=== PATIENT | female | born 1970 | race Caucasian/White ===

== ENCOUNTER 2016-02-13 09:43 | Outpatient (RCR) | payer MEDICARE, OTHER ==
--- OUTSIDE RECORDS SUMMARY | 2015-11-21 10:14 | XMS REPORT | Continuity of Care Document ---
Author Author [facility] Organization [facility] Address Unknown Phone Unavailable Care Team Providers Care Monotype Caster Name Role Phone Barbra Haney PCP [phone] Source Comments Some departments are not documenting in the electronic medical record. If you do not see the information that you expected, contact Release of Information in the Health Information Management department at [phone] for further assistance in locating additional records.[facility] Active Allergies and Adverse Reactions No Known [...] # [id number]. Sponsor: Simi. PI: Dr. Rutherford Photo Technologist: Pedrito Serra [id number] is an oral, potent, [...] site of breast (HCC) (Primary Dx) 08/23/2015 [facility] Cardiology Yovany Rutherford MD Encounter 08/23/2015 Hospital Radiology Yovany Rutherford MD Encounter 08/23/2015 [facility] Radiology Yovany Rutherford MD Encounter 08/23/2015 Screening Form Social History Tobacco Use Types Packs/Day Years [...] 11/29/2015 Appointment Radiology Yovany Rutherford MD [address] [place] [address] [phone] (Fax) 11/29/2015 Appointment Oncology Yovany Rutherford MD [address] [place] [address] [phone] (Fax) Health Maintenance Due Date Last Done [...] pelvis dated May 24, 2015 FINDINGS: ARTURO NVOAK M.D. has personally reviewed these images and [...]
[2015-12-05 17:59] LABS: BASOPHILS % (AUTO) 1 % (0-10); EOSINOPHILS # (AUTO) 0.1 10^3/uL (0.0-0.3); EOSINOPHILS % (AUTO) 5 % (0-10); LYMPHOCYTES % (AUTO) 31 % (12-44); MEAN CORPUSCULAR HEMOGLOBIN 30 PG (25-34); MEAN CORPUSCULAR HGB CONC 34 G/DL (32-36); MEAN CORPUSCULAR VOLUME 88 FL (80-99); MEAN PLATELET VOLUME 11.2 FL (7.4-10.4); MONOCYTES # (AUTO) 0.3 X 10^3 (0.0-1.0); MONOCYTES % (AUTO) 8 % (0-12); NEUTROPHILS # (AUTO) 1.7 X 10^3 (1.8-7.8); NEUTROPHILS % (AUTO) 56 % (42-75); PLATELET COUNT 112 10^3/uL (130-400); RED BLOOD COUNT 4.18 10^6/uL (4.35-5.85); WHITE BLOOD COUNT 3.1 10^3/uL (4.3-11.0)
[2015-12-05 18:09] LABS: ALANINE AMINOTRANSFERASE 26 U/L (0-55); ALBUMIN 4.2 G/DL (3.2-4.5); ANION GAP 10 MMOL/L (5-14); ASPARTATE AMINO TRANSFERASE 33 U/L (5-34); BILIRUBIN,TOTAL 0.5 MG/DL (0.1-1.0); BLOOD UREA NITROGEN 16 MG/DL (7-18); BUN/CREATININE RATIO 19; CALCIUM 9.6 MG/DL (8.5-10.1); CARBON DIOXIDE 24 MMOL/L (21-32); CHLORIDE 107 MMOL/L (98-107); CREATININE SERUM 0.84 MG/DL (0.60-1.30); GFR ESTIMATED > 60; GLUCOSE 86 MG/DL (70-105); SODIUM 141 MMOL/L (135-145)
[2015-12-26 16:29] LABS: BASOPHILS % (AUTO) 1 % (0-10); EOSINOPHILS # (AUTO) 0.2 10^3/uL (0.0-0.3); EOSINOPHILS % (AUTO) 5 % (0-10); LYMPHOCYTES # (AUTO) 1.1 X 10^3 (1.0-4.0); LYMPHOCYTES % (AUTO) 33 % (12-44); MEAN CORPUSCULAR HEMOGLOBIN 30 PG (25-34); MEAN CORPUSCULAR HGB CONC 35 G/DL (32-36); MEAN CORPUSCULAR VOLUME 88 FL (80-99); MEAN PLATELET VOLUME 10.9 FL (7.4-10.4); MONOCYTES # (AUTO) 0.3 X 10^3 (0.0-1.0); MONOCYTES % (AUTO) 8 % (0-12); NEUTROPHILS # (AUTO) 1.8 X 10^3 (1.8-7.8); NEUTROPHILS % (AUTO) 53 % (42-75); PLATELET COUNT 114 10^3/uL (130-400); RED BLOOD COUNT 4.04 10^6/uL (4.35-5.85); RED CELL DISTRIBUTION WIDTH 13.1 % (10.0-14.5); WHITE BLOOD COUNT 3.4 10^3/uL (4.3-11.0)
[2015-12-26 17:04] LABS: ALANINE AMINOTRANSFERASE 33 U/L (0-55); ALBUMIN 4.1 G/DL (3.2-4.5); ANION GAP 7 MMOL/L (5-14); ASPARTATE AMINO TRANSFERASE 35 U/L (5-34); BILIRUBIN,TOTAL 0.7 MG/DL (0.1-1.0); BLOOD UREA NITROGEN 17 MG/DL (7-18); BUN/CREATININE RATIO 20; CALCIUM 9.3 MG/DL (8.5-10.1); CARBON DIOXIDE 25 MMOL/L (21-32); CHLORIDE 107 MMOL/L (98-107); CREATININE SERUM 0.85 MG/DL (0.60-1.30); GFR ESTIMATED > 60; GLUCOSE 88 MG/DL (70-105); POTASSIUM 4.2 MMOL/L (3.6-5.0); SODIUM 139 MMOL/L (135-145); TOTAL PROTEIN 6.9 G/DL (6.4-8.2)
[2016-01-16 16:20] LABS: BASOPHILS # (AUTO) 0.1 10^3/uL (0.0-0.1); BASOPHILS % (AUTO) 1 % (0-10); EOSINOPHILS # (AUTO) 0.2 10^3/uL (0.0-0.3); EOSINOPHILS % (AUTO) 5 % (0-10); LYMPHOCYTES # (AUTO) 1.1 X 10^3 (1.0-4.0); LYMPHOCYTES % (AUTO) 31 % (12-44); MEAN CORPUSCULAR HEMOGLOBIN 30 PG (25-34); MEAN CORPUSCULAR HGB CONC 34 G/DL (32-36); MEAN CORPUSCULAR VOLUME 88 FL (80-99); MEAN PLATELET VOLUME 10.7 FL (7.4-10.4); MONOCYTES # (AUTO) 0.3 X 10^3 (0.0-1.0); MONOCYTES % (AUTO) 8 % (0-12); NEUTROPHILS # (AUTO) 1.9 X 10^3 (1.8-7.8); NEUTROPHILS % (AUTO) 55 % (42-75); PLATELET COUNT 115 10^3/uL (130-400); RED BLOOD COUNT 4.11 10^6/uL (4.35-5.85); RED CELL DISTRIBUTION WIDTH 13.1 % (10.0-14.5); WHITE BLOOD COUNT 3.5 10^3/uL (4.3-11.0)
[2016-01-16 17:02] LABS: ALANINE AMINOTRANSFERASE 38 U/L (0-55); ALBUMIN 4.3 G/DL (3.2-4.5); ANION GAP 9 MMOL/L (5-14); ASPARTATE AMINO TRANSFERASE 45 U/L (5-34); BILIRUBIN,TOTAL 0.6 MG/DL (0.1-1.0); BLOOD UREA NITROGEN 15 MG/DL (7-18); BUN/CREATININE RATIO 18; CALCIUM 9.3 MG/DL (8.5-10.1); CARBON DIOXIDE 25 MMOL/L (21-32); CHLORIDE 109 MMOL/L (98-107); CREATININE SERUM 0.84 MG/DL (0.60-1.30); GFR ESTIMATED > 60; GLUCOSE 95 MG/DL (70-105); POTASSIUM 3.9 MMOL/L (3.6-5.0); SODIUM 143 MMOL/L (135-145)
[~2016-02-13] VITALS: Ht 175.3 cm; Wt 85.3 kg
[~2016-02-13 09:43] MED LIST: ACETAMINOPHEN 500 MG TAB (TYLENOL) PO PRN; ALLERGY INJECTIONS SQ; AMOX500C2 PO; ANAS1TAB44 PO; CALC-656 PO; CPH500CIP; CTRZ10T PO; CYAN10007 PO; DCS100C PO; FLUO40CA PO; HYDR-89 PO; HYDR1TAB PO; IBP800T PO; LEVO5TAB2 PO; MNTL10T; MULT1CAP27 PO; NS IV 500 ML 500 ML IV SCH; NS IV SCH; POTA99TA15 PO; PSEU120T53 PO; TAMO20TA2 PO; TRASTUZUMAB IV SCH; diphenhydrAMINE 25 MG TAB (BENADRYL) PO SCH
== END 2016-02-19 | disposition home or self-care (01) ==
LOC: PAR 09:43
PROVIDERS: ATTEND Internal Medicine Hematology & Oncology
DX: Z51.11 Encounter for antineoplastic chemotherapy (principal); C50.212 Malignant neoplasm of upper-inner quadrant of left female breast; Z17.0 Estrogen receptor positive status [ER+]; R23.2 Flushing; F32.9 Major depressive disorder, single episode, unspecified; E11.9 Type 2 diabetes mellitus without complications; Z79.899 Other long term (current) drug therapy
CPT/HCPCS: 36415; 80053; 85025; 86300; 96413; 99213

== ENCOUNTER → 2016-02-24 | Outpatient (CLI) | payer MEDICARE, OTHER ==
[~2016-02-24] MED LIST changes: -ACETAMINOPHEN 500 MG TAB (TYLENOL) PO PRN; +BARIUM SUSPENSION 2.1% (VANILLA SILQ) 450 ML PO ONE; +CATHETER FLUSH 10 ML SYR IV PRN; +IOHEXOL 350 MG/ML 100 ML (OMNIPAQUE 350) VIAL IV ONE; +NS 100 ML (IVPB) BAG IV ONE; -NS IV 500 ML 500 ML IV SCH; -NS IV SCH; -TRASTUZUMAB IV SCH; -diphenhydrAMINE 25 MG TAB (BENADRYL) PO SCH
--- OUTSIDE RECORDS SUMMARY | 2016-02-24 07:46 | XMS REPORT | Continuity of Care Document ---
Author Author [facility] Organization [facility] Address Unknown Phone Unavailable Care Team Providers Care Facilitator Name Role Phone Barbra Haney PCP [phone] Source Comments Some departments are not documenting in the electronic medical record. If you do not see the information that you expected, contact Release of Information in the Health Information Management department at [phone] for further assistance in locating additional records.[facility] Active Allergies and Adverse Reactions No Known [...] # [id number]. Sponsor: Simi. PI: Dr. Rutherford Sky Cap: Pedrito Serra ONT-380 is an oral, potent, [...] Malignant neoplasm of left breast (HCC) 05/23/2014 Social History Tobacco Use Types Packs/Day Years [...] 08/23/2015 3:48 PM CDT Plan of Care Health Maintenance Due Date Last Done Comments Physical (Comprehensive) 1977 Exam Pertussis Vaccine 1981 Tetanus Vaccine 05/10/1987 Cervical Cancer Screening 05/10/1991 Breast Cancer Screening 2010 Influenza Vaccine 10/17/2015 Results from Last 3 Months Not on file
--- NOTE | 2016-02-24 12:33 | Diagnostic Imaging Report ---
PROCEDURE: CT chest and abdomen with contrast. TECHNIQUE: Multiple contiguous axial images were obtained through the chest and abdomen after the administration of intravenous contrast. INDICATION: Breast cancer. COMPARISON: CT abdomen of 08/09/[address] of 05/02/13. CT CHEST FINDINGS: Visualized thyroid is normal. No supraclavicular or axillary lymphadenopathy. Left axillary lymph node dissection changes are again noted. The posterior right paratracheal lymph nodes have decreased in size. For example, the upper right paratracheal posterior lymph node now measures 0.5 cm (previously 0.7 cm). Subcarinal lymph node has also decreased in size but persists now measuring approximately 1.0 cm in short axis (previously 1.5 cm). No new or enlarging mediastinal or hilar lymph nodes. No juxtaphrenic lymphadenopathy. Normal-caliber thoracic aorta. Normal heart size without pericardial effusion. No pleural effusion or pneumothorax. No pulmonary mass or consolidation. No suspicious pulmonary nodules that would raise concern for pulmonary metastases. No osseous lesions in the thorax that would suggest skeletal metastases. IMPRESSION: 1. Compared to PET/CT of 05/02/13, the right paratracheal and subcarinal lymph nodes persist, but have slightly decreased in size. No new intrathoracic lymphadenopathy. 2. No evidence of pulmonary metastases. CT ABDOMEN FINDINGS: The liver, gallbladder, spleen, pancreas and adrenals are normal. Kidneys enhance symmetrically without suspicious mass lesion or obstructive uropathy. No abdominal lymphadenopathy. Normal-caliber abdominal aorta. No bowel obstruction. No pericolonic inflammatory changes in the visualized portions of the colon. No concerning osseous lesions in the abdomen. IMPRESSION: 1. No evidence of metastatic disease in the abdomen. Specifically, no findings of hepatic metastasis. Dictated by: Dictated on workstation # [id number]
== END ==
LOC: RAD 07:42
PROVIDERS: ATTEND Internal Medicine Hematology & Oncology
DX: C50.212 Malignant neoplasm of upper-inner quadrant of left female breast (principal)
CPT/HCPCS: 71260; 74160

== ENCOUNTER → 2016-04-28 | Outpatient (CLI) | payer MEDICARE, OTHER ==
[~2016-04-28] MED LIST changes: -BARIUM SUSPENSION 2.1% (VANILLA SILQ) 450 ML PO ONE; -CATHETER FLUSH 10 ML SYR IV PRN; -IOHEXOL 350 MG/ML 100 ML (OMNIPAQUE 350) VIAL IV ONE; -NS 100 ML (IVPB) BAG IV ONE
--- OUTSIDE RECORDS SUMMARY | 2016-04-28 12:19 | XMS REPORT | Continuity of Care Document ---
Author Author [facility] Organization [facility] Address Unknown Phone Unavailable Care Team Providers Care Heavy Equipment Supervisor Name Role Phone Barbra Haney PCP [phone] Source Comments Some departments are not documenting in the electronic medical record. If you do not see the information that you expected, contact Release of Information in the Health Information Management department at [phone] for further assistance in locating additional records.[facility] Active Allergies and Adverse Reactions [...] # [id number]. Sponsor: Simi. PI: Dr. Rutherford Residential Construction Instructor: Pedrito Serra ONT-[id number] is an oral, potent, [...]
--- NOTE | 2016-04-29 14:08 | Diagnostic Imaging Report ---
EXAMINATION: PET-CT TECHNIQUE: Serum glucose level at the time of the study is: 12.3 mg/dL. 12.1 mCi of FDG was administered intravenously followed by obtaining PET images with corresponding noncontrast CT scan images. The CT scan was performed for anatomic correlation and attenuation correction and was not performed according to the diagnostic protocol of the areas covered. The scan was performed from the head to mid thighs. INDICATION: Breast cancer followup. COMPARISON: CT chest and abdomen performed on 02/24/16. FINDINGS: There is no hypermetabolic mass seen in the head identified. The FDG uptake in the brain appears symmetric. In the neck, there is mild to moderate hypermetabolism in somewhat symmetric fashion around the oropharynx, slightly more prominent on the left side and along the floor of the mouth, favored to be physiologic or inflammatory related. There is a hypermetabolic right paratracheal lymph node measuring approximately 1 cm in size and is associated with relatively intense FDG uptake for the size of a lesion with SUV value of 7.6. There is another lymph node with also moderate hypermetabolism and maximum SUV of 6.5 seen along the medial hilar area inferiorly on the right side abutting the right side of the esophagus. This is concerning for metastatic disease. There is no significantly hypermetabolic mass in the chest otherwise. There is a focus of mild hypermetabolism that projects along the right lateral aspect of the lower right ribs appears to be associated with area of hyperostosis probably related to a healing rib fracture with no definitive underlying mass. Followup exams recommended, however, to rule out early metastasis. No other bone hypermetabolic mass seen. In the abdomen and pelvis, there is expected excretion in the kidneys with no suspicious hypermetabolic mass. IMPRESSION: 1. There is significant hypermetabolism in relatively small right paratracheal and right paraesophageal/infrahilar lymph nodes about 1 cm in size with minimal difference by size compared to 02/24/2016 CT scan, concerning for neoplasm recurrence. 2. Mild to moderate focus of increased activity along lower right rib laterally (the 9th rib) associated with focal sclerosis may relate to subacute simple fracture with no other osseous lesions seen to suspect metastasis. Dictated by: Dictated on workstation # [id number]
== END ==
LOC: RAD 12:15
PROVIDERS: ATTEND Internal Medicine Hematology & Oncology
DX: C50.212 Malignant neoplasm of upper-inner quadrant of left female breast (principal)

== ENCOUNTER 2016-05-14 10:02 | Outpatient (RCR) | payer MEDICARE, OTHER ==
--- OUTSIDE RECORDS SUMMARY | 2016-02-27 09:07 | XMS REPORT | Continuity of Care Document ---
Author Author [facility] Organization [facility] Address Unknown Phone Unavailable Care Team Providers Care Parts And Service Manager Name Role Phone Barbra Haney PCP [phone] Source Comments Some departments are not documenting in the electronic medical record. If you do not see the information that you expected, contact Release of Information in the Health Information Management department at [phone] for further assistance in locating additional records.[facility] Active Allergies and Adverse [...] # [id number]. Sponsor: Simi. PI: Dr. Rutherford Fiberglass Quality Technician: Pedrito Serra ONT-380 is an oral, potent, [...]
[2016-02-27 15:58] LABS: BASOPHILS # (AUTO) 0.1 10^3/uL (0.0-0.1); BASOPHILS % (AUTO) 1 % (0-10); EOSINOPHILS # (AUTO) 0.2 10^3/uL (0.0-0.3); EOSINOPHILS % (AUTO) 5 % (0-10); LYMPHOCYTES # (AUTO) 1.2 X 10^3 (1.0-4.0); LYMPHOCYTES % (AUTO) 33 % (12-44); MEAN CORPUSCULAR HEMOGLOBIN 30 PG (25-34); MEAN CORPUSCULAR HGB CONC 34 G/DL (32-36); MEAN CORPUSCULAR VOLUME 86 FL (80-99); MEAN PLATELET VOLUME 10.2 FL (7.4-10.4); MONOCYTES # (AUTO) 0.3 X 10^3 (0.0-1.0); MONOCYTES % (AUTO) 9 % (0-12); NEUTROPHILS # (AUTO) 1.9 X 10^3 (1.8-7.8); NEUTROPHILS % (AUTO) 51 % (42-75); PLATELET COUNT 140 10^3/uL (130-400); RED BLOOD COUNT 4.16 10^6/uL (4.35-5.85); WHITE BLOOD COUNT 3.7 10^3/uL (4.3-11.0)
[2016-02-27 16:54] LABS: ALANINE AMINOTRANSFERASE 45 U/L (0-55); ALBUMIN 4.3 G/DL (3.2-4.5); ANION GAP 8 MMOL/L (5-14); ASPARTATE AMINO TRANSFERASE 44 U/L (5-34); BILIRUBIN,TOTAL 0.6 MG/DL (0.1-1.0); BLOOD UREA NITROGEN 16 MG/DL (7-18); BUN/CREATININE RATIO 19; CALCIUM 9.4 MG/DL (8.5-10.1); CARBON DIOXIDE 23 MMOL/L (21-32); CHLORIDE 107 MMOL/L (98-107); CREATININE SERUM 0.86 MG/DL (0.60-1.30); GFR ESTIMATED > 60; GLUCOSE 82 MG/DL (70-105); POTASSIUM 4.4 MMOL/L (3.6-5.0); SODIUM 138 MMOL/L (135-145); TOTAL PROTEIN 7.2 G/DL (6.4-8.2)
[2016-03-19 15:59] LABS: BASOPHILS % (AUTO) 1 % (0-10); EOSINOPHILS # (AUTO) 0.2 10^3/uL (0.0-0.3); EOSINOPHILS % (AUTO) 5 % (0-10); LYMPHOCYTES % (AUTO) 31 % (12-44); MEAN CORPUSCULAR HEMOGLOBIN 30 PG (25-34); MEAN CORPUSCULAR HGB CONC 34 G/DL (32-36); MEAN CORPUSCULAR VOLUME 88 FL (80-99); MEAN PLATELET VOLUME 10.2 FL (7.4-10.4); MONOCYTES # (AUTO) 0.3 X 10^3 (0.0-1.0); MONOCYTES % (AUTO) 9 % (0-12); NEUTROPHILS # (AUTO) 1.8 X 10^3 (1.8-7.8); NEUTROPHILS % (AUTO) 54 % (42-75); PLATELET COUNT 117 10^3/uL (130-400); RED BLOOD COUNT 4.33 10^6/uL (4.35-5.85); RED CELL DISTRIBUTION WIDTH 13.3 % (10.0-14.5); WHITE BLOOD COUNT 3.3 10^3/uL (4.3-11.0)
[2016-03-19 16:57] LABS: ALANINE AMINOTRANSFERASE 55 U/L (0-55); ALBUMIN 4.4 G/DL (3.2-4.5); ANION GAP 7 MMOL/L (5-14); ASPARTATE AMINO TRANSFERASE 48 U/L (5-34); BILIRUBIN,TOTAL 0.7 MG/DL (0.1-1.0); BLOOD UREA NITROGEN 18 MG/DL (7-18); BUN/CREATININE RATIO 20; CALCIUM 9.8 MG/DL (8.5-10.1); CARBON DIOXIDE 27 MMOL/L (21-32); CHLORIDE 107 MMOL/L (98-107); CREATININE SERUM 0.91 MG/DL (0.60-1.30); GFR ESTIMATED > 60; GLUCOSE 81 MG/DL (70-105); POTASSIUM 4.2 MMOL/L (3.6-5.0); SODIUM 141 MMOL/L (135-145); TOTAL PROTEIN 7.3 G/DL (6.4-8.2)
[2016-04-09 16:23] LABS: BASOPHILS % (AUTO) 0 % (0-10); EOSINOPHILS # (AUTO) 0.1 10^3/uL (0.0-0.3); EOSINOPHILS % (AUTO) 5 % (0-10); LYMPHOCYTES % (AUTO) 31 % (12-44); MEAN CORPUSCULAR HEMOGLOBIN 30 PG (25-34); MEAN CORPUSCULAR HGB CONC 34 G/DL (32-36); MEAN CORPUSCULAR VOLUME 88 FL (80-99); MEAN PLATELET VOLUME 10.5 FL (7.4-10.4); MONOCYTES # (AUTO) 0.3 X 10^3 (0.0-1.0); MONOCYTES % (AUTO) 9 % (0-12); NEUTROPHILS # (AUTO) 1.7 X 10^3 (1.8-7.8); NEUTROPHILS % (AUTO) 55 % (42-75); PLATELET COUNT 115 10^3/uL (130-400); RED BLOOD COUNT 3.98 10^6/uL (4.35-5.85); RED CELL DISTRIBUTION WIDTH 12.9 % (10.0-14.5); WHITE BLOOD COUNT 3.1 10^3/uL (4.3-11.0)
[2016-04-09 17:01] LABS: ALANINE AMINOTRANSFERASE 73 U/L (0-55); ALBUMIN 4.1 G/DL (3.2-4.5); ANION GAP 9 MMOL/L (5-14); ASPARTATE AMINO TRANSFERASE 66 U/L (5-34); BILIRUBIN,TOTAL 0.5 MG/DL (0.1-1.0); BLOOD UREA NITROGEN 18 MG/DL (7-18); BUN/CREATININE RATIO 21; CALCIUM 9.2 MG/DL (8.5-10.1); CARBON DIOXIDE 25 MMOL/L (21-32); CHLORIDE 109 MMOL/L (98-107); CREATININE SERUM 0.85 MG/DL (0.60-1.30); GFR ESTIMATED > 60; GLUCOSE 80 MG/DL (70-105); POTASSIUM 4.2 MMOL/L (3.6-5.0); SODIUM 143 MMOL/L (135-145); TOTAL PROTEIN 6.7 G/DL (6.4-8.2)
[2016-05-07 15:33] LABS: BASOPHILS % (AUTO) 0 % (0-10); EOSINOPHILS # (AUTO) 0.1 10^3/uL (0.0-0.3); EOSINOPHILS % (AUTO) 5 % (0-10); LYMPHOCYTES # (AUTO) 0.9 X 10^3 (1.0-4.0); LYMPHOCYTES % (AUTO) 32 % (12-44); MEAN CORPUSCULAR HEMOGLOBIN 30 PG (25-34); MEAN CORPUSCULAR HGB CONC 34 G/DL (32-36); MEAN CORPUSCULAR VOLUME 87 FL (80-99); MEAN PLATELET VOLUME 10.7 FL (7.4-10.4); MONOCYTES # (AUTO) 0.3 X 10^3 (0.0-1.0); MONOCYTES % (AUTO) 10 % (0-12); NEUTROPHILS # (AUTO) 1.5 X 10^3 (1.8-7.8); NEUTROPHILS % (AUTO) 53 % (42-75); PLATELET COUNT 107 10^3/uL (130-400); RED BLOOD COUNT 4.13 10^6/uL (4.35-5.85); RED CELL DISTRIBUTION WIDTH 13.1 % (10.0-14.5); WHITE BLOOD COUNT 2.8 10^3/uL (4.3-11.0)
[2016-05-07 16:01] LABS: ALANINE AMINOTRANSFERASE 24 U/L (0-55); ALBUMIN 4.1 G/DL (3.2-4.5); ANION GAP 6 MMOL/L (5-14); ASPARTATE AMINO TRANSFERASE 33 U/L (5-34); BILIRUBIN,TOTAL 0.6 MG/DL (0.1-1.0); BLOOD UREA NITROGEN 15 MG/DL (7-18); BUN/CREATININE RATIO 17; CARBON DIOXIDE 25 MMOL/L (21-32); CHLORIDE 109 MMOL/L (98-107); CREATININE SERUM 0.87 MG/DL (0.60-1.30); GFR ESTIMATED > 60; GLUCOSE 90 MG/DL (70-105); SODIUM 140 MMOL/L (135-145); TOTAL PROTEIN 6.8 G/DL (6.4-8.2)
[~2016-05-14] VITALS: Ht 175.3 cm; Wt 83.9 kg
[~2016-05-14 10:02] MED LIST changes: +NS IV SCH; +TRASTUZUMAB IV SCH
== END 2016-05-27 | disposition home or self-care (01) ==
LOC: PAR 10:02
PROVIDERS: ATTEND Internal Medicine Hematology & Oncology
DX: Z51.11 Encounter for antineoplastic chemotherapy (principal); C50.212 Malignant neoplasm of upper-inner quadrant of left female breast; Z17.0 Estrogen receptor positive status [ER+]; R23.2 Flushing; F32.9 Major depressive disorder, single episode, unspecified; E11.9 Type 2 diabetes mellitus without complications; Z79.899 Other long term (current) drug therapy
CPT/HCPCS: 36415; 36591; 80053; 85025; 86300; 96413; 99213

== ENCOUNTER 2016-08-06 10:37 | Outpatient (RCR) | payer MEDICARE, OTHER ==
[2016-05-28 16:18] LABS: BASOPHILS % (AUTO) 1 % (0-10); EOSINOPHILS # (AUTO) 0.2 10^3/uL (0.0-0.3); EOSINOPHILS % (AUTO) 5 % (0-10); LYMPHOCYTES # (AUTO) 1.1 X 10^3 (1.0-4.0); LYMPHOCYTES % (AUTO) 32 % (12-44); MEAN CORPUSCULAR HEMOGLOBIN 28 PG (25-34); MEAN CORPUSCULAR HGB CONC 32 G/DL (32-36); MEAN CORPUSCULAR VOLUME 88 FL (80-99); MEAN PLATELET VOLUME 10.9 FL (7.4-10.4); MONOCYTES # (AUTO) 0.3 X 10^3 (0.0-1.0); MONOCYTES % (AUTO) 8 % (0-12); NEUTROPHILS # (AUTO) 1.8 X 10^3 (1.8-7.8); NEUTROPHILS % (AUTO) 54 % (42-75); PLATELET COUNT 116 10^3/uL (130-400); RED BLOOD COUNT 4.22 10^6/uL (4.35-5.85); RED CELL DISTRIBUTION WIDTH 12.8 % (10.0-14.5); WHITE BLOOD COUNT 3.3 10^3/uL (4.3-11.0)
[2016-05-28 16:56] LABS: ALANINE AMINOTRANSFERASE 26 U/L (0-55); ALBUMIN 4.3 G/DL (3.2-4.5); ANION GAP 8 MMOL/L (5-14); ASPARTATE AMINO TRANSFERASE 29 U/L (5-34); BILIRUBIN,TOTAL 0.5 MG/DL (0.1-1.0); BLOOD UREA NITROGEN 19 MG/DL (7-18); BUN/CREATININE RATIO 21; CALCIUM 9.5 MG/DL (8.5-10.1); CARBON DIOXIDE 27 MMOL/L (21-32); CHLORIDE 105 MMOL/L (98-107); GFR ESTIMATED > 60; GLUCOSE 87 MG/DL (70-105); POTASSIUM 4.4 MMOL/L (3.6-5.0); SODIUM 140 MMOL/L (135-145); TOTAL PROTEIN 7.3 G/DL (6.4-8.2)
[2016-06-18 16:11] LABS: BASOPHILS % (AUTO) 1 % (0-10); EOSINOPHILS # (AUTO) 0.2 10^3/uL (0.0-0.3); EOSINOPHILS % (AUTO) 5 % (0-10); LYMPHOCYTES # (AUTO) 0.9 X 10^3 (1.0-4.0); LYMPHOCYTES % (AUTO) 28 % (12-44); MEAN CORPUSCULAR HEMOGLOBIN 30 PG (25-34); MEAN CORPUSCULAR HGB CONC 34 G/DL (32-36); MEAN CORPUSCULAR VOLUME 88 FL (80-99); MEAN PLATELET VOLUME 10.5 FL (7.4-10.4); MONOCYTES # (AUTO) 0.3 X 10^3 (0.0-1.0); MONOCYTES % (AUTO) 8 % (0-12); NEUTROPHILS # (AUTO) 1.8 X 10^3 (1.8-7.8); NEUTROPHILS % (AUTO) 58 % (42-75); PLATELET COUNT 115 10^3/uL (130-400); RED BLOOD COUNT 4.19 10^6/uL (4.35-5.85); RED CELL DISTRIBUTION WIDTH 12.8 % (10.0-14.5); WHITE BLOOD COUNT 3.2 10^3/uL (4.3-11.0)
[2016-06-18 16:55] LABS: ALANINE AMINOTRANSFERASE 49 U/L (0-55); ALBUMIN 4.3 G/DL (3.2-4.5); ANION GAP 10 MMOL/L (5-14); ASPARTATE AMINO TRANSFERASE 42 U/L (5-34); BILIRUBIN,TOTAL 0.6 MG/DL (0.1-1.0); BLOOD UREA NITROGEN 21 MG/DL (7-18); BUN/CREATININE RATIO 23; CALCIUM 9.5 MG/DL (8.5-10.1); CARBON DIOXIDE 27 MMOL/L (21-32); CHLORIDE 107 MMOL/L (98-107); CREATININE SERUM 0.92 MG/DL (0.60-1.30); GFR ESTIMATED > 60; GLUCOSE 85 MG/DL (70-105); POTASSIUM 4.2 MMOL/L (3.6-5.0); SODIUM 144 MMOL/L (135-145); TOTAL PROTEIN 7.1 G/DL (6.4-8.2)
[2016-07-09 14:03] LABS: BASOPHILS % (AUTO) 1 % (0-10); EOSINOPHILS # (AUTO) 0.3 10^3/uL (0.0-0.3); EOSINOPHILS % (AUTO) 6 % (0-10); LYMPHOCYTES # (AUTO) 0.6 X 10^3 (1.0-4.0); LYMPHOCYTES % (AUTO) 13 % (12-44); MEAN CORPUSCULAR HEMOGLOBIN 30 PG (25-34); MEAN CORPUSCULAR HGB CONC 33 G/DL (32-36); MEAN CORPUSCULAR VOLUME 89 FL (80-99); MEAN PLATELET VOLUME 10.3 FL (7.4-10.4); MONOCYTES # (AUTO) 0.4 X 10^3 (0.0-1.0); MONOCYTES % (AUTO) 10 % (0-12); NEUTROPHILS % (AUTO) 70 % (42-75); PLATELET COUNT 105 10^3/uL (130-400); RED BLOOD COUNT 3.98 10^6/uL (4.35-5.85); RED CELL DISTRIBUTION WIDTH 12.9 % (10.0-14.5); WHITE BLOOD COUNT 4.3 10^3/uL (4.3-11.0)
[2016-07-09 14:17] LABS: ALANINE AMINOTRANSFERASE 77 U/L (0-55); ALBUMIN 4.1 G/DL (3.2-4.5); ANION GAP 8 MMOL/L (5-14); ASPARTATE AMINO TRANSFERASE 53 U/L (5-34); BILIRUBIN,TOTAL 0.9 MG/DL (0.1-1.0); BLOOD UREA NITROGEN 14 MG/DL (7-18); BUN/CREATININE RATIO 16; CALCIUM 9.3 MG/DL (8.5-10.1); CARBON DIOXIDE 27 MMOL/L (21-32); CHLORIDE 107 MMOL/L (98-107); CREATININE SERUM 0.87 MG/DL (0.60-1.30); GFR ESTIMATED > 60; GLUCOSE 107 MG/DL (70-105); POTASSIUM 3.6 MMOL/L (3.6-5.0); SODIUM 142 MMOL/L (135-145)
[~2016-08-06] VITALS: Ht 175.3 cm; Wt 82.6 kg
[2016-08-25] MEDS ORDERED: TRASTUZUMAB IV SCH (12:45)
[2016-08-25] MEDS ORDERED: NS IV SCH (12:45)
== END 2016-08-26 | disposition home or self-care (01) ==
LOC: PAR 10:37
PROVIDERS: ATTEND Internal Medicine Hematology & Oncology
DX: Z51.11 Encounter for antineoplastic chemotherapy (principal); C50.212 Malignant neoplasm of upper-inner quadrant of left female breast; Z17.0 Estrogen receptor positive status [ER+]; R23.2 Flushing; F32.9 Major depressive disorder, single episode, unspecified; E11.9 Type 2 diabetes mellitus without complications; Z79.899 Other long term (current) drug therapy
CPT/HCPCS: 36415; 80053; 85025; 86300; 96413; 99213

== ENCOUNTER → 2016-09-03 | Outpatient (CLI) | payer MEDICARE, OTHER ==
[~2016-09-03] MED LIST changes: +BARIUM SUSPENSION 2.1% (VANILLA SILQ) 450 ML PO ONE; +CATHETER FLUSH 10 ML SYR IV PRN; +IOHEXOL 350 MG/ML 100 ML (OMNIPAQUE 350) VIAL IV ONE; +NS 100 ML (IVPB) BAG IV ONE; -NS IV SCH; -TRASTUZUMAB IV SCH
--- NOTE | 2016-09-03 10:52 | Diagnostic Imaging Report ---
PROCEDURE: CT chest with contrast, CT abdomen and pelvis with and without contrast. TECHNIQUE: Pre and post intravenous contrast axial imaging of the abdomen and pelvis and post contrast axial imaging of the chest were performed. INDICATION: History of breast cancer. Now with elevated tumor markers. COMPARISON: 02/24/2016 FINDINGS: CT chest: Evaluation of the cardiomediastinal structures demonstrates interval development of enlarged mediastinal lymph node interposed between the SVC and trachea just superior to the level of the azygos vein. It measures approximately 2.1 x 1.5 cm. No abnormal hilar or axillary adenopathy is seen. Multiple surgical clips are noted within the left axilla and left breast. Heart size is within normal limits. There is small pericardial effusion; likely within physiologic limits. Evaluation of the lung hernandez demonstrates no focal consolidation, pleural effusion, nor pneumothorax. No pulmonary nodules or masses are identified. Bony structures show no lytic or blastic lesions. No acute bony abnormalities are identified. CT abdomen: Spleen is enlarged, but stable compared to prior exam. No focal splenic lesions are seen. The kidneys, adrenal glands, pancreas, and liver have a normal appearance. Small bowel loops are nondistended. Normal appendix cannot be adequately identified, but there is no pericecal inflammation. There is no loculated fluid collection, free fluid, nor free air within the abdomen. No abnormal mesenteric or retroperitoneal adenopathy is seen. Bony structures show no acute abnormalities. CT pelvis: Urinary bladder is grossly unremarkable. There is no loculated fluid collection, free fluid, nor free air within the pelvis. No abnormal lymph nodes are seen. Bony structures show no acute abnormalities. IMPRESSION: 1. Interval development of single abnormally enlarged mediastinal lymph node. Given the history of breast cancer and elevated tumor markers, findings are strongly suspicious for metastatic disease. 2. Stable splenomegaly. Dictated by: Dictated on workstation # [id number]
== END ==
LOC: RAD 08:58
PROVIDERS: ATTEND Internal Medicine Hematology & Oncology
DX: R59.0 Localized enlarged lymph nodes (principal); R16.1 Splenomegaly, not elsewhere classified; Z85.3 Personal history of malignant neoplasm of breast
CPT/HCPCS: 71260; 74178

== ENCOUNTER 2016-10-08 13:17 | Outpatient (RCR) | payer MEDICARE, OTHER ==
[2016-09-10 16:14] LABS: BASOPHILS % (AUTO) 1 % (0-10); EOSINOPHILS # (AUTO) 0.2 10^3/uL (0.0-0.3); EOSINOPHILS % (AUTO) 5 % (0-10); LYMPHOCYTES # (AUTO) 0.8 X 10^3 (1.0-4.0); LYMPHOCYTES % (AUTO) 24 % (12-44); MEAN CORPUSCULAR HEMOGLOBIN 29 PG (25-34); MEAN CORPUSCULAR HGB CONC 33 G/DL (32-36); MEAN CORPUSCULAR VOLUME 88 FL (80-99); MEAN PLATELET VOLUME 10.6 FL (7.4-10.4); MONOCYTES # (AUTO) 0.3 X 10^3 (0.0-1.0); MONOCYTES % (AUTO) 8 % (0-12); NEUTROPHILS # (AUTO) 2.1 X 10^3 (1.8-7.8); NEUTROPHILS % (AUTO) 63 % (42-75); PLATELET COUNT 117 10^3/uL (130-400); RED BLOOD COUNT 4.03 10^6/uL (4.35-5.85); WHITE BLOOD COUNT 3.4 10^3/uL (4.3-11.0)
[2016-09-10 16:54] LABS: ANION GAP 12 MMOL/L (5-14); BLOOD UREA NITROGEN 15 MG/DL (7-18); CARBON DIOXIDE 23 MMOL/L (21-32); CHLORIDE 105 MMOL/L (98-107); CREATININE SERUM 0.88 MG/DL (0.60-1.30); POTASSIUM 3.9 MMOL/L (3.6-5.0); SODIUM 140 MMOL/L (135-145)
[2016-09-10 16:55] LABS: ALANINE AMINOTRANSFERASE 62 U/L (0-55); ALBUMIN 4.2 GM/DL (3.2-4.5); ASPARTATE AMINO TRANSFERASE 48 U/L (5-34); BILIRUBIN,TOTAL 0.5 MG/DL (0.1-1.0); BUN/CREATININE RATIO 17; CALCIUM 9.2 MG/DL (8.5-10.1); GFR ESTIMATED > 60; GLUCOSE 102 MG/DL (70-105); TOTAL PROTEIN 7.1 GM/DL (6.4-8.2)
[2016-09-17 16:07] LABS: MEAN CORPUSCULAR HEMOGLOBIN 29 PG (25-34); MEAN CORPUSCULAR HGB CONC 33 G/DL (32-36); MEAN CORPUSCULAR VOLUME 88 FL (80-99); RED BLOOD COUNT 4.18 10^6/uL (4.35-5.85); RED CELL DISTRIBUTION WIDTH 13.1 % (10.0-14.5); WHITE BLOOD COUNT 3.8 10^3/uL (4.3-11.0)
[2016-09-17 16:08] LABS: BASOPHILS % (AUTO) 1 % (0-10); EOSINOPHILS # (AUTO) 0.2 10^3/uL (0.0-0.3); EOSINOPHILS % (AUTO) 5 % (0-10); LYMPHOCYTES # (AUTO) 0.9 X 10^3 (1.0-4.0); LYMPHOCYTES % (AUTO) 23 % (12-44); MEAN PLATELET VOLUME 10.4 FL (7.4-10.4); MONOCYTES # (AUTO) 0.3 X 10^3 (0.0-1.0); MONOCYTES % (AUTO) 7 % (0-12); NEUTROPHILS # (AUTO) 2.4 X 10^3 (1.8-7.8); NEUTROPHILS % (AUTO) 65 % (42-75); PLATELET COUNT 115 10^3/uL (130-400)
[2016-09-17 16:39] LABS: ALANINE AMINOTRANSFERASE 57 U/L (0-55); ALBUMIN 4.2 GM/DL (3.2-4.5); ANION GAP 10 MMOL/L (5-14); ASPARTATE AMINO TRANSFERASE 49 U/L (5-34); BILIRUBIN,TOTAL 0.6 MG/DL (0.1-1.0); BLOOD UREA NITROGEN 13 MG/DL (7-18); BUN/CREATININE RATIO 15; CALCIUM 9.6 MG/DL (8.5-10.1); CARBON DIOXIDE 26 MMOL/L (21-32); CHLORIDE 107 MMOL/L (98-107); CREATININE SERUM 0.89 MG/DL (0.60-1.30); GFR ESTIMATED > 60; GLUCOSE 106 MG/DL (70-105); POTASSIUM 3.8 MMOL/L (3.6-5.0); SODIUM 143 MMOL/L (135-145); TOTAL PROTEIN 7.3 GM/DL (6.4-8.2)
[~2016-10-08] VITALS: Ht 175.3 cm; Wt 82.1 kg
[~2016-10-08 13:17] MED LIST changes: -BARIUM SUSPENSION 2.1% (VANILLA SILQ) 450 ML PO ONE; -CATHETER FLUSH 10 ML SYR IV PRN; +FAMOTIDINE 20MG/2ML IV (CANCER CTR) IV SCH; -IOHEXOL 350 MG/ML 100 ML (OMNIPAQUE 350) VIAL IV ONE; -NS 100 ML (IVPB) BAG IV ONE; +NS IV 1000 ML (CANCER CTR) IV SCH; +NS IV SCH; +ONDANSETRON 16 MG, DEXAMETHASONE 10 MG/NS 50 ML IVPB IV SCH; +PERTUZUMAB 420 MG in NS (IVPB) CANCER CENTER 250 ML IV SCH; +PERTUZUMAB 840 MG in NS (IVPB) CANCER CENTER 250 ML IV SCH; +TRASTUZUMAB IV SCH
== END 2016-10-29 11:51 | disposition home or self-care (01) ==
LOC: PAR 13:17
PROVIDERS: ATTEND Internal Medicine Hematology & Oncology
DX: Z51.11 Encounter for antineoplastic chemotherapy (principal); C50.212 Malignant neoplasm of upper-inner quadrant of left female breast; Z17.0 Estrogen receptor positive status [ER+]; R23.2 Flushing; F32.9 Major depressive disorder, single episode, unspecified; E11.9 Type 2 diabetes mellitus without complications; Z79.899 Other long term (current) drug therapy
CPT/HCPCS: 36415; 80053; 85025; 86300; 96413; 99213

== ENCOUNTER 2016-11-03 09:16 | Outpatient (RCR) | payer MEDICARE, OTHER ==
--- OUTSIDE RECORDS SUMMARY | 2015-10-03 10:17 | XMS REPORT | Continuity of Care Document ---
Author Author [facility] Organization [facility] Address Unknown Phone Unavailable Care Team Providers Care Appian Bpm Developer Name Role Phone Barbra Haney PCP [phone] Source Comments Some departments are not documenting in the electronic medical record. If you do not see the information that you expected, contact Release of Information in the Health Information Management department at [phone] for further assistance in locating additional records.[facility] Active Allergies and Adverse Reactions No Known Allergies Current Medications Prescription Sig. Disp. Refills Start End Date Status Date LORazepam (ATIVAN) 0.5 mg Take 1 Tab by mouth every 30 Tab 1 06/26/19 Active tablet 4 hours as needed for 15 Nausea, Vomiting or Other.... prochlorperazine Take 1 Tab by mouth every 30 Tab 1 06/26/19 Active (COMPAZINE) 10 mg tablet 6 hours as needed. 15 Active Problems Problem Noted Date Examination of participant in clinical trial 06/20/2014 Overview: 06-07-2014 -- Patient signed the informed consent for Phase 1b, Open-Label Study to Assess the Safety and Tolerability of ONT-380 Combined with Ado-Trastuzumab Emtansine (T-DM1). Protocol # ONT-380-004. Sponsor: Simi. PI: Dr. Rutherford Barkeeper: Pedrito Serra ONT-380 is an oral, potent, HER2-specific tyrosine kinase inhibitor being developed for the treatment of HER2+ breast cancer. It is not a dual inhibitor of both EGFR and HER2 -- ONT-380 selectively inhibits HER2. Each cycle consists of 21 days. ONT-380 is an oral medication taken twice daily for 21 days. Ado-trastuzumab emtansine (T-DM1) is given IV once each 21 days. She has bee enrolled into Cohort 1 -- ONT-380 300 mg PO BID and T-DM1 3.6 mg/kg. ONT-380 may be taken without regard to food intake. 06-13-2014 -- Begin Screening 06-20-2014 -- Cycle 1 Day 1 -- Start taking ONT-380 300 mg po BID 06-21-2014 -- Cycle 1 Day 2 -- Received T-DM1 IV 3.6 mg/kg today L ast Assessment & Plan: 1. Breast Cancer / Clinical Trial Participant -- All Inclusion and Exclusion criteria has been met. She was dosed with ONT-380 300 mg po today while in clinic. She is enrolled in Amendment 6 and does not require PK's per protocol. 2. Left knee pain -- Will continue to monitor. 3. Muscle spasms lower extremities -- Will continue to monitor. Breast cancer (HCC) 06/18/2014 Malignant neoplasm of left breast (HCC) 05/23/2014 Most Recent Encounters Date Type Specialty Providers Description 08/23/2015 Office Visit Oncology Yovany Rutherford MD Malignant neoplasm of female breast, unspecified laterality, unspecified site of breast (HCC) (Primary Dx) 08/23/2015 [facility] Cardiology Yovany Rutherford MD Encounter 08/23/2015 [facility] Radiology Yovany Rutherford MD Encounter 08/23/2015 [facility] Radiology Yovany Rutherford MD Encounter 08/23/2015 Screening Form 07/22/2015 Orders Only Oncology Jack Riley RPH 07/12/2015 Telephone Oncology Yovany Rutherford MD Appointment Request 07/11/2015 [facility] Yovany Rutherford MD 07/11/2015 Orders Only Oncology Yovany Rutherford MD Malignant neoplasm of female breast, unspecified laterality, unspecified site of breast (HCC) (Primary Dx) Social History Tobacco Use Types Packs/Day Years Used Date Never Smoker Alcohol Use Drinks/Week oz/Week Comments No Last Filed Vital Signs Vital Sign Reading Time Taken Blood Pressure 128/69 08/23/2015 3:48 PM CDT Pulse 72 08/23/2015 3:48 PM CDT Temperature 36.4 C (97.5 F) 08/23/2015 3:48 PM CDT Respiratory Rate 14 11/16/2014 1:21 PM CDT Height 1.778 m (5' 10") 08/23/2015 3:48 PM CDT Weight 91.808 kg (202 lb 6.4 oz) 08/23/2015 3:48 PM CDT Body Mass Index 29.04 08/23/2015 3:48 PM CDT Oxygen Saturation 100% 08/23/2015 3:48 PM CDT Plan of Care Date Type Specialty Providers Description 11/29/2015 Appointment Radiology 11/29/2015 Appointment Radiology Yovany Rutherford MD [address] [place] [address] [phone] (Fax) 11/29/2015 Appointment Oncology Yovany Rutherford MD [address] [place] [address] [phone] (Fax) Health Maintenance Due Date Last Done Comments Physical (Comprehensive) 1977 Exam Pertussis Vaccine 1981 Tetanus Vaccine 05/10/1987 Cervical Cancer Screening 05/10/1991 Breast Cancer Screening 2010 Influenza Vaccine 10/17/2015 Results from Last 3 Months 2-D + DOPPLER ECHOCARDIOGRAM (08/23/2015 2:43 PM) Component Value Range BSA 2.13 m2 ECHO EF 55 % LVIDD 5.0 3.9-5.3 cm LVIDS 3.2 cm IVS 0.8 0.6-0.9 cm PW 0.8 0.6-0.9 cm FS 36.00 28-44 % EF 61.20 % LA size 4.3 2.7-3.8 cm LA volume 62.0 22-52 mL Left Atrium Index 29.11 10-32 Right Ventricular Basal 3.1 cm (2.4-4.2) Diameter Right Atrial Area 16.0 cm2 (<=18) Right Ventricular Mid 1.9 cm (2.0-3.5) Diameter Right Atrial Major 5.2 cm (<=5.3) Dimension Right Ventricular Long 5.2 cm (5.6-8.6) Diameter Right Atrial Minor 3.3 cm (<=4.4) Dimension Sinus 3.3 2.1-3.5 cm AV peak velocity 1.5 m/s TV rest pulmonary artery 23 mmHg pressure E/A ratio 1.40 TDI e' 0.130 m/s E/E' ratio 5.38 MV Peak E Poncho PW 0.700 m/s MV Peak A Poncho 0.500 m/s Narrative Normal chamber sizes Left ventricular ejection fraction=55% Unremarkable cardiac valve structures and function Pulmonary artery pressure=23mmHg No significant pericardial effusion Study is similar to the prior study of 09/28/14 Lester Patel MD, MSc CT CHEST W CONTRAST (08/23/2015 12:18 PM) Impressions CHEST: 1. Prior left breast lumpectomy and left axillary lymph node dissection with stable postoperative appearance of the left breast. No thoracic lymphadenopathy. 2. Stable subcentimeter noncalcified right lung pulmonary nodules. These are stable since April 2014, and likely benign noncalcified granulomas or scars. No new or enlarging pulmonary nodule. ABDOMEN AND PELVIS: 1. No evidence of abdominopelvic metastatic disease. 2. Mild splenomegaly. By my electronic signature, I attest that I have personally reviewed the images for this examination and formulated the interpretations and opinions expressed in this report Finalized by ARTURO NOVAK M.D. on 08/23/2015 2:56 PM. Dictated by Charisse Salazar M.D. on 08/23/2015 1:[address] CHEST, ABDOMEN AND PELVIS HISTORY: Malignant neoplasm of female breast, unspecified laterality, unspecified site of breast. Restaging. Status post lumpectomy and radiation. History of mediastinal and axillary metastatic disease. TECHNIQUE: Multiple contiguous axial images were obtained through the chest, abdomen and pelvis following the administration of IV contrast. Portal venous and delayed imaging was obtained. Post processing coronal and sagittal reconstruction images were made from the axial images. IV CONTRAST: 100 mL Isovue-370 BOWEL CONTRAST:30 mL Gastrografin mixed with water COMPARISON: CT chest, abdomen and pelvis dated May 24, 2015 FINDINGS: ARTURO NOVAK M.D. has personally reviewed these images and formulated the interpretations and opinions expressed in this report. CHEST: Axilla, Mediastinum and Desiree: Prior left axillary lymph node dissection. No recurrent axillary, mediastinal or hilar lymphadenopathy. Redemonstration of small rebound thymic tissue within the anterior mediastinum. Small hiatal hernia. Heart and Great Vessels: The heart is normal in size without pericardial effusion. Thoracic aorta is normal caliber. Right subclavian chest port remains in place with tip within the distal SVC. Airway, Lungs and Pleura: Mild bilateral dependent atelectasis. Stable tiny noncalcified right lung nodules (series 2, image 23, and 10 and 13). These are stable since April 2014. No new or enlarging pulmonary nodule. No pleural effusion. Chest Wall and Osseous Structures: Prior left breast lumpectomy with surgical clips and stable asymmetric soft tissue thickening along the anterior chest wall (series 2, image 35). Unchanged mild left breast skin thickening. Mild thoracic spondylosis. Stable benign, well-defined sclerotic lesion within left lateral T7 vertebral body. No destructive osseous lesion. ABDOMEN AND PELVIS: Liver and Biliary system: The liver is upper limits of normal in size. No focal hepatic lesion. The gallbladder is nondistended. No calcified gallstones. The major portal veins are patent. Spleen: The spleen remains mildly enlarged. Redemonstration of tiny low density along the medial aspect of the spleen (series 2, image 67), which is too small to characterize but most likely benign. This is stable since August 2014. Adrenal Glands and Kidneys: Adrenal glands are unremarkable. No hydronephrosis or nephrolithiasis. Pancreas and Retroperitoneum: The pancreas is unremarkable. No retroperitoneal lymphadenopathy. Aorta and Major Vessels: Unremarkable. Bowel, Mesentery and Peritoneal space: Large and small bowel loops are normal caliber without obstruction. Mild sigmoid diverticulosis. No mesenteric lymphadenopathy or ascites. Pelvis: The partially opacified urinary bladder is unremarkable. Prior hysterectomy. Vaginal cuff is unremarkable. No pelvic lymphadenopathy. Abdominal wall and Osseous Structures: Mild lumbar spondylosis. No destructive osseous lesion. Stable Schmorl's node along the inferior endplate of L4. Redemonstration of benign sclerotic lesion along the medial left iliac bone. Procedure Note Interface, Radiant Results - WedAug 23, 2015 2:[address] CHEST, ABDOMEN AND PELVIS HISTORY: Malignant neoplasm of female breast, unspecified laterality, unspecified site of breast. Restaging. Status post lumpectomy and radiation. History of mediastinal and axillary metastatic disease. TECHNIQUE: Multiple contiguous axial images were obtained through the chest, abdomen and pelvis following the administration of IV contrast. Portal venous and delayed imaging was obtained. Post processing coronal and sagittal reconstruction images were made from the axial images. IV CONTRAST: 100 mL Isovue-370 BOWEL CONTRAST: 30 mL Gastrografin mixed with water COMPARISON: CT chest, abdomen and pelvis dated May 24, 2015 FINDINGS: ARTURO NOVAK M.D. has personally reviewed these images and formulated the interpretations and opinions expressed in this report. CHEST: Axilla, Mediastinum and Desiree: Prior left axillary lymph node dissection. No recurrent axillary, mediastinal or hilar lymphadenopathy. Redemonstration of small rebound thymic tissue within the anterior mediastinum. Small hiatal hernia. Heart and Great Vessels: The heart is normal in size without pericardial effusion. Thoracic aorta is normal caliber. Right subclavian chest port remains in place with tip within the distal SVC. Airway, Lungs and Pleura: Mild bilateral dependent atelectasis. Stable tiny noncalcified right lung nodules (series 2, image 23, and 10 and 13). These are stable since April 2014. No new or enlarging pulmonary nodule. No pleural effusion. Chest Wall and Osseous Structures: Prior left breast lumpectomy with surgical clips and stable asymmetric soft tissue thickening along the anterior chest wall (series 2, image 35). Unchanged mild left breast skin thickening. Mild thoracic spondylosis. Stable benign, well-defined sclerotic lesion within left lateral T7 vertebral body. No destructive osseous lesion. ABDOMEN AND PELVIS: Liver and Biliary system: The liver is upper limits of normal in size. No focal hepatic lesion. The gallbladder is nondistended. No calcified gallstones. The major portal veins are patent. Spleen: The spleen remains mildly enlarged. Redemonstration of tiny low density along the medial aspect of the spleen (series 2, image 67), which is too small to characterize but most likely benign. This is stable since August 2014. Adrenal Glands and Kidneys: Adrenal glands are unremarkable. No hydronephrosis or nephrolithiasis. Pancreas and Retroperitoneum: The pancreas is unremarkable. No retroperitoneal lymphadenopathy. Aorta and Major Vessels: Unremarkable. Bowel, Mesentery and Peritoneal space: Large and small bowel loops are normal caliber without obstruction. Mild sigmoid diverticulosis. No mesenteric lymphadenopathy or ascites. Pelvis: The partially opacified urinary bladder is unremarkable. Prior hysterectomy. Vaginal cuff is unremarkable. No pelvic lymphadenopathy. Abdominal wall and Osseous Structures: Mild lumbar spondylosis. No destructive osseous lesion. Stable Schmorl's node along the inferior endplate of L4. Redemonstration of benign sclerotic lesion along the medial left iliac bone. IMPRESSION CHEST: 1. Prior left breast lumpectomy and left axillary lymph node dissection with stable postoperative appearance of the left breast. No thoracic lymphadenopathy. 2. Stable subcentimeter noncalcified right lung pulmonary nodules. These are stable since April 2014, and likely benign noncalcified granulomas or scars. No new or enlarging pulmonary nodule. ABDOMEN AND PELVIS: 1. No evidence of abdominopelvic metastatic disease. 2. Mild splenomegaly. By my electronic signature, I attest that I have personally reviewed the images for this examination and formulated the interpretations and opinions expressed in this report Finalized by ARTURO NOVAK M.D. on 08/23/2015 2:56 PM. Dictated by Charisse Salazar M.D. on 08/23/2015 1:[address] ABD/PELV W CONTRAST (08/23/2015 12:18 PM) Impressions CHEST: 1. Prior left breast lumpectomy and left axillary lymph node dissection with stable postoperative appearance of the left breast. No thoracic lymphadenopathy. 2. Stable subcentimeter noncalcified right lung pulmonary nodules. These are stable since April 2014, and likely benign noncalcified granulomas or scars. No new or enlarging pulmonary nodule. ABDOMEN AND PELVIS: 1. No evidence of abdominopelvic metastatic disease. 2. Mild splenomegaly. By my electronic signature, I attest that I have personally reviewed the images for this examination and formulated the interpretations and opinions expressed in this report Finalized by ARTURO NOVAK M.D. on 08/23/2015 2:56 PM. Dictated by Charisse Salazar M.D. on 08/23/2015 1:[address] CHEST, ABDOMEN AND PELVIS HISTORY: Malignant neoplasm of female breast, unspecified laterality, unspecified site of breast. Restaging. Status post lumpectomy and radiation. History of mediastinal and axillary metastatic disease. TECHNIQUE: Multiple contiguous axial images were obtained through the chest, abdomen and pelvis following the administration of IV contrast. Portal venous and delayed imaging was obtained. Post processing coronal and sagittal reconstruction images were made from the axial images. IV CONTRAST: 100 mL Isovue-370 BOWEL CONTRAST:30 mL Gastrografin mixed with water COMPARISON: CT chest, abdomen and pelvis dated May 24, 2015 FINDINGS: ARTURO NOVAK M.D. has personally reviewed these images and formulated the interpretations and opinions expressed in this report. CHEST: Axilla, Mediastinum and Desiree: Prior left axillary lymph node dissection. No recurrent axillary, mediastinal or hilar lymphadenopathy. Redemonstration of small rebound thymic tissue within the anterior mediastinum. Small hiatal hernia. Heart and Great Vessels: The heart is normal in size without pericardial effusion. Thoracic aorta is normal caliber. Right subclavian chest port remains in place with tip within the distal SVC. Airway, Lungs and Pleura: Mild bilateral dependent atelectasis. Stable tiny noncalcified right lung nodules (series 2, image 23, and 10 and 13). These are stable since April 2014. No new or enlarging pulmonary nodule. No pleural effusion. Chest Wall and Osseous Structures: Prior left breast lumpectomy with surgical clips and stable asymmetric soft tissue thickening along the anterior chest wall (series 2, image 35). Unchanged mild left breast skin thickening. Mild thoracic spondylosis. Stable benign, well-defined sclerotic lesion within left lateral T7 vertebral body. No destructive osseous lesion. ABDOMEN AND PELVIS: Liver and Biliary system: The liver is upper limits of normal in size. No focal hepatic lesion. The gallbladder is nondistended. No calcified gallstones. The major portal veins are patent. Spleen: The spleen remains mildly enlarged. Redemonstration of tiny low density along the medial aspect of the spleen (series 2, image 67), which is too small to characterize but most likely benign. This is stable since August 2014. Adrenal Glands and Kidneys: Adrenal glands are unremarkable. No hydronephrosis or nephrolithiasis. Pancreas and Retroperitoneum: The pancreas is unremarkable. No retroperitoneal lymphadenopathy. Aorta and Major Vessels: Unremarkable. Bowel, Mesentery and Peritoneal space: Large and small bowel loops are normal caliber without obstruction. Mild sigmoid diverticulosis. No mesenteric lymphadenopathy or ascites. Pelvis: The partially opacified urinary bladder is unremarkable. Prior hysterectomy. Vaginal cuff is unremarkable. No pelvic lymphadenopathy. Abdominal wall and Osseous Structures: Mild lumbar spondylosis. No destructive osseous lesion. Stable Schmorl's node along the inferior endplate of L4. Redemonstration of benign sclerotic lesion along the medial left iliac bone. Procedure Note Interface, Radiant Results - WedAug 23, 2015 2:[address] CHEST, ABDOMEN AND PELVIS HISTORY: Malignant neoplasm of female breast, unspecified laterality, unspecified site of breast. Restaging. Status post lumpectomy and radiation. History of mediastinal and axillary metastatic disease. TECHNIQUE: Multiple contiguous axial images were obtained through the chest, abdomen and pelvis following the administration of IV contrast. Portal venous and delayed imaging was obtained. Post processing coronal and sagittal reconstruction images were made from the axial images. IV CONTRAST: 100 mL Isovue-370 BOWEL CONTRAST: 30 mL Gastrografin mixed with water COMPARISON: CT chest, abdomen and pelvis dated May 24, 2015 FINDINGS: ARTURO NOVAK M.D. has personally reviewed these images and formulated the interpretations and opinions expressed in this report. CHEST: Axilla, Mediastinum and Desiree: Prior left axillary lymph node dissection. No recurrent axillary, mediastinal or hilar lymphadenopathy. Redemonstration of small rebound thymic tissue within the anterior mediastinum. Small hiatal hernia. Heart and Great Vessels: The heart is normal in size without pericardial effusion. Thoracic aorta is normal caliber. Right subclavian chest port remains in place with tip within the distal SVC. Airway, Lungs and Pleura: Mild bilateral dependent atelectasis. Stable tiny noncalcified right lung nodules (series 2, image 23, and 10 and 13). These are stable since April 2014. No new or enlarging pulmonary nodule. No pleural effusion. Chest Wall and Osseous Structures: Prior left breast lumpectomy with surgical clips and stable asymmetric soft tissue thickening along the anterior chest wall (series 2, image 35). Unchanged mild left breast skin thickening. Mild thoracic spondylosis. Stable benign, well-defined sclerotic lesion within left lateral T7 vertebral body. No destructive osseous lesion. ABDOMEN AND PELVIS: Liver and Biliary system: The liver is upper limits of normal in size. No focal hepatic lesion. The gallbladder is nondistended. No calcified gallstones. The major portal veins are patent. Spleen: The spleen remains mildly enlarged. Redemonstration of tiny low density along the medial aspect of the spleen (series 2, image 67), which is too small to characterize but most likely benign. This is stable since August 2014. Adrenal Glands and Kidneys: Adrenal glands are unremarkable. No hydronephrosis or nephrolithiasis. Pancreas and Retroperitoneum: The pancreas is unremarkable. No retroperitoneal lymphadenopathy. Aorta and Major Vessels: Unremarkable. Bowel, Mesentery and Peritoneal space: Large and small bowel loops are normal caliber without obstruction. Mild sigmoid diverticulosis. No mesenteric lymphadenopathy or ascites. Pelvis: The partially opacified urinary bladder is unremarkable. Prior hysterectomy. Vaginal cuff is unremarkable. No pelvic lymphadenopathy. Abdominal wall and Osseous Structures: Mild lumbar spondylosis. No destructive osseous lesion. Stable Schmorl's node along the inferior endplate of L4. Redemonstration of benign sclerotic lesion along the medial left iliac bone. IMPRESSION CHEST: 1. Prior left breast lumpectomy and left axillary lymph node dissection with stable postoperative appearance of the left breast. No thoracic lymphadenopathy. 2. Stable subcentimeter noncalcified right lung pulmonary nodules. These are stable since April 2014, and likely benign noncalcified granulomas or scars. No new or enlarging pulmonary nodule. ABDOMEN AND PELVIS: 1. No evidence of abdominopelvic metastatic disease. 2. Mild splenomegaly. By my electronic signature, I attest that I have personally reviewed the images for this examination and formulated the interpretations and opinions expressed in this report Finalized by ARTURO NOVAK M.D. on 08/23/2015 2:56 PM. Dictated by Charisse Salazar M.D. on 08/23/2015 1:07 PM. COMPREHENSIVE METABOLIC PANEL (08/23/2015 11:28 AM) Component Value Range Sodium 139 137-147 MMOL/L Potassium 3.6 3.5-5.1 MMOL/L Chloride 107 98-110 MMOL/L Glucose 94 70-100 MG/DL Blood Urea Nitrogen 20 7-25 MG/DL Creatinine 0.80 0.4-1.00 MG/DL Calcium 9.4 8.5-10.6 MG/DL Total Protein 7.1 6.0-8.0 G/DL Total Bilirubin 0.5 0.3-1.2 MG/DL Albumin 4.0 3.5-5.0 G/DL Alk Phosphatase 100 25-110 U/L AST (SGOT) 52 (H) 7-40 U/L CO2 27 21-30 MMOL/L ALT (SGPT) 49 7-56 U/L Anion Gap 5 3-12 eGFR Non >60Comment: >60 mL/min The eGFR is not validated for use in drug dosing adjustments. Continue to use estimated creatinine clearance per dosing reference text. Please contact the Clinical Pharmacist for questions. eGFR >60Comment: >60 mL/min The eGFR is not validated for use in drug dosing adjustments. Continue to use estimated creatinine clearance per dosing reference text. Please contact the Clinical Pharmacist for questions. Specimen Blood CBC AND DIFF (08/23/2015 11:28 AM) Component Value Range White Blood Cells 3.9 (L) 4.5-11.0 K/UL RBC 3.93 (L) 4.0-5.0 M/UL Hemoglobin 11.6 (L) 12.0-15.0 GM/DL Hematocrit 34.4 (L) 36-45 % MCV 87.5 80-100 FL MCH 29.4 26-34 PG MCHC 33.6 32.0-36.0 G/DL RDW 14.2 11-15 % Platelet Count 86 (L) 150-400 K/UL MPV 7.5 7-11 FL Neutrophils 61 41-77 % Lymphocytes 25 24-44 % Monocytes 8 4-12 % Eosinophils 5 0-5 % Basophils 1 0-2 % Absolute Neutrophil Count 2.40 1.8-7.0 K/UL Absolute Lymph Count 1.00 1.0-4.8 K/UL Absolute Monocyte Count 0.30 0-0.80 K/UL Absolute Eosinophil Count 0.20 0-0.45 K/UL Absolute Basophil Count 0.00 0-0.20 K/UL Specimen Blood
[2016-08-21 09:05] LABS: BASOPHILS % (AUTO) 1 % (0-10); EOSINOPHILS # (AUTO) 0.2 10^3/uL (0.0-0.3); EOSINOPHILS % (AUTO) 6 % (0-10); LYMPHOCYTES % (AUTO) 31 % (12-44); MEAN CORPUSCULAR HEMOGLOBIN 30 PG (25-34); MEAN CORPUSCULAR HGB CONC 34 G/DL (32-36); MEAN CORPUSCULAR VOLUME 87 FL (80-99); MONOCYTES # (AUTO) 0.3 X 10^3 (0.0-1.0); MONOCYTES % (AUTO) 9 % (0-12); NEUTROPHILS # (AUTO) 1.7 X 10^3 (1.8-7.8); NEUTROPHILS % (AUTO) 53 % (42-75); PLATELET COUNT 111 10^3/uL (130-400); RED BLOOD COUNT 4.24 10^6/uL (4.35-5.85); RED CELL DISTRIBUTION WIDTH 12.6 % (10.0-14.5); WHITE BLOOD COUNT 3.3 10^3/uL (4.3-11.0)
[2016-08-21 09:27] LABS: ALANINE AMINOTRANSFERASE 31 U/L (0-55); ALBUMIN 4.2 GM/DL (3.2-4.5); ANION GAP 7 MMOL/L (5-14); ASPARTATE AMINO TRANSFERASE 31 U/L (5-34); BILIRUBIN,TOTAL 0.7 MG/DL (0.1-1.0); BLOOD UREA NITROGEN 18 MG/DL (7-18); BUN/CREATININE RATIO 20; CALCIUM 9.6 MG/DL (8.5-10.1); CARBON DIOXIDE 26 MMOL/L (21-32); CHLORIDE 107 MMOL/L (98-107); CREATININE SERUM 0.88 MG/DL (0.60-1.30); GFR ESTIMATED > 60; GLUCOSE 87 MG/DL (70-105); SODIUM 140 MMOL/L (135-145); TOTAL PROTEIN 7.3 GM/DL (6.4-8.2)
[2016-10-13 15:10] LABS: BASOPHILS % (AUTO) 1 % (0-10); EOSINOPHILS # (AUTO) 0.2 10^3/uL (0.0-0.3); EOSINOPHILS % (AUTO) 4 % (0-10); LYMPHOCYTES # (AUTO) 1.3 X 10^3 (1.0-4.0); LYMPHOCYTES % (AUTO) 29 % (12-44); MEAN CORPUSCULAR HEMOGLOBIN 29 PG (25-34); MEAN CORPUSCULAR HGB CONC 33 G/DL (32-36); MEAN CORPUSCULAR VOLUME 87 FL (80-99); MEAN PLATELET VOLUME 9.3 FL (7.4-10.4); MONOCYTES # (AUTO) 0.3 X 10^3 (0.0-1.0); MONOCYTES % (AUTO) 7 % (0-12); NEUTROPHILS # (AUTO) 2.5 X 10^3 (1.8-7.8); NEUTROPHILS % (AUTO) 59 % (42-75); PLATELET COUNT 133 10^3/uL (130-400); RED BLOOD COUNT 4.01 10^6/uL (4.35-5.85); RED CELL DISTRIBUTION WIDTH 12.8 % (10.0-14.5); WHITE BLOOD COUNT 4.3 10^3/uL (4.3-11.0)
[2016-10-13 15:31] LABS: ALANINE AMINOTRANSFERASE 33 U/L (0-55); ANION GAP 6 MMOL/L (5-14); ASPARTATE AMINO TRANSFERASE 35 U/L (5-34); BILIRUBIN,TOTAL 0.3 MG/DL (0.1-1.0); BLOOD UREA NITROGEN 15 MG/DL (7-18); BUN/CREATININE RATIO 18; CALCIUM 9.3 MG/DL (8.5-10.1); CARBON DIOXIDE 29 MMOL/L (21-32); CHLORIDE 107 MMOL/L (98-107); CREATININE SERUM 0.84 MG/DL (0.60-1.30); GFR ESTIMATED > 60; GLUCOSE 132 MG/DL (70-105); POTASSIUM 3.6 MMOL/L (3.6-5.0); SODIUM 142 MMOL/L (135-145); TOTAL PROTEIN 6.6 GM/DL (6.4-8.2)
[~2016-11-03] VITALS: Ht 175.3 cm; Wt 82.1 kg
[2016-11-03 09:31] LABS: BASOPHILS % (AUTO) 1 % (0-10); EOSINOPHILS # (AUTO) 0.2 10^3/uL (0.0-0.3); EOSINOPHILS % (AUTO) 5 % (0-10); LYMPHOCYTES % (AUTO) 26 % (12-44); MEAN CORPUSCULAR HEMOGLOBIN 29 PG (25-34); MEAN CORPUSCULAR HGB CONC 33 G/DL (32-36); MEAN CORPUSCULAR VOLUME 88 FL (80-99); MEAN PLATELET VOLUME 9.1 FL (7.4-10.4); MONOCYTES # (AUTO) 0.4 X 10^3 (0.0-1.0); MONOCYTES % (AUTO) 9 % (0-12); NEUTROPHILS # (AUTO) 2.3 X 10^3 (1.8-7.8); NEUTROPHILS % (AUTO) 59 % (42-75); PLATELET COUNT 134 10^3/uL (130-400); RED CELL DISTRIBUTION WIDTH 13.1 % (10.0-14.5); WHITE BLOOD COUNT 3.9 10^3/uL (4.3-11.0)
[2016-11-03] MEDS ORDERED: diphenhydrAMINE 25 MG TAB (BENADRYL) CANCER CENTER PO SCH (10:00)
[2016-11-03 10:05] LABS: ALANINE AMINOTRANSFERASE 29 U/L (0-55); ALBUMIN 3.9 GM/DL (3.2-4.5); ANION GAP 9 MMOL/L (5-14); ASPARTATE AMINO TRANSFERASE 27 U/L (5-34); BILIRUBIN,TOTAL 0.5 MG/DL (0.1-1.0); BLOOD UREA NITROGEN 14 MG/DL (7-18); BUN/CREATININE RATIO 18; CALCIUM 9.4 MG/DL (8.5-10.1); CARBON DIOXIDE 25 MMOL/L (21-32); CHLORIDE 107 MMOL/L (98-107); CREATININE SERUM 0.79 MG/DL (0.60-1.30); GFR ESTIMATED > 60; GLUCOSE 101 MG/DL (70-105); POTASSIUM 3.7 MMOL/L (3.6-5.0); SODIUM 141 MMOL/L (135-145); TOTAL PROTEIN 6.4 GM/DL (6.4-8.2)
== END 2016-11-14 | disposition home or self-care (01) ==
LOC: ONC 09:16
PROVIDERS: ATTEND Internal Medicine Hematology & Oncology
DX: Z51.11 Encounter for antineoplastic chemotherapy (principal); C50.212 Malignant neoplasm of upper-inner quadrant of left female breast; Z17.0 Estrogen receptor positive status [ER+]; R23.2 Flushing; F32.9 Major depressive disorder, single episode, unspecified; E11.9 Type 2 diabetes mellitus without complications; Z79.899 Other long term (current) drug therapy
CPT/HCPCS: 36415; 36591; 80053; 85025; 86300; 96375; 96413; 96417; 99213

== ENCOUNTER 2016-12-15 14:55 | Outpatient (RCR) | payer MEDICARE ==
[2016-11-24 09:08] LABS: BASOPHILS # (AUTO) 0.1 10^3/uL (0.0-0.1); BASOPHILS % (AUTO) 1 % (0-10); EOSINOPHILS # (AUTO) 0.2 10^3/uL (0.0-0.3); EOSINOPHILS % (AUTO) 5 % (0-10); LYMPHOCYTES # (AUTO) 0.9 X 10^3 (1.0-4.0); LYMPHOCYTES % (AUTO) 26 % (12-44); MEAN CORPUSCULAR HEMOGLOBIN 29 PG (25-34); MEAN CORPUSCULAR HGB CONC 33 G/DL (32-36); MEAN CORPUSCULAR VOLUME 88 FL (80-99); MEAN PLATELET VOLUME 9.6 FL (7.4-10.4); MONOCYTES # (AUTO) 0.3 X 10^3 (0.0-1.0); MONOCYTES % (AUTO) 9 % (0-12); NEUTROPHILS # (AUTO) 2.1 X 10^3 (1.8-7.8); NEUTROPHILS % (AUTO) 58 % (42-75); PLATELET COUNT 115 10^3/uL (130-400); RED BLOOD COUNT 3.98 10^6/uL (4.35-5.85); RED CELL DISTRIBUTION WIDTH 12.9 % (10.0-14.5); WHITE BLOOD COUNT 3.6 10^3/uL (4.3-11.0)
[2016-11-24 09:24] LABS: ALANINE AMINOTRANSFERASE 39 U/L (0-55); ALBUMIN 3.9 GM/DL (3.2-4.5); ANION GAP 8 MMOL/L (5-14); ASPARTATE AMINO TRANSFERASE 32 U/L (5-34); BILIRUBIN,TOTAL 0.5 MG/DL (0.1-1.0); BLOOD UREA NITROGEN 15 MG/DL (7-18); BUN/CREATININE RATIO 18; CALCIUM 9.3 MG/DL (8.5-10.1); CARBON DIOXIDE 26 MMOL/L (21-32); CHLORIDE 108 MMOL/L (98-107); CREATININE SERUM 0.84 MG/DL (0.60-1.30); GFR ESTIMATED > 60; GLUCOSE 89 MG/DL (70-105); POTASSIUM 3.7 MMOL/L (3.6-5.0); SODIUM 142 MMOL/L (135-145); TOTAL PROTEIN 6.8 GM/DL (6.4-8.2)
[~2016-12-15] VITALS: Ht 175.3 cm; Wt 83.5 kg
[~2016-12-15 14:55] MED LIST changes: -PERTUZUMAB 840 MG in NS (IVPB) CANCER CENTER 250 ML IV SCH; +diphenhydrAMINE 25 MG TAB (BENADRYL) CANCER CENTER PO SCH
[2016-12-15 15:22] LABS: BASOPHILS # (AUTO) 0.1 10^3/uL (0.0-0.1); BASOPHILS % (AUTO) 1 % (0-10); EOSINOPHILS # (AUTO) 0.2 10^3/uL (0.0-0.3); EOSINOPHILS % (AUTO) 5 % (0-10); LYMPHOCYTES # (AUTO) 1.1 X 10^3 (1.0-4.0); LYMPHOCYTES % (AUTO) 28 % (12-44); MEAN CORPUSCULAR HEMOGLOBIN 30 PG (25-34); MEAN CORPUSCULAR HGB CONC 34 G/DL (32-36); MEAN CORPUSCULAR VOLUME 87 FL (80-99); MEAN PLATELET VOLUME 9.6 FL (7.4-10.4); MONOCYTES # (AUTO) 0.4 X 10^3 (0.0-1.0); MONOCYTES % (AUTO) 9 % (0-12); NEUTROPHILS # (AUTO) 2.3 X 10^3 (1.8-7.8); NEUTROPHILS % (AUTO) 56 % (42-75); PLATELET COUNT 123 10^3/uL (130-400); RED BLOOD COUNT 3.89 10^6/uL (4.35-5.85); RED CELL DISTRIBUTION WIDTH 12.6 % (10.0-14.5)
[2016-12-15 15:45] LABS: ALANINE AMINOTRANSFERASE 29 U/L (0-55); ANION GAP 8 MMOL/L (5-14); ASPARTATE AMINO TRANSFERASE 27 U/L (5-34); BILIRUBIN,TOTAL 0.4 MG/DL (0.1-1.0); BLOOD UREA NITROGEN 17 MG/DL (7-18); BUN/CREATININE RATIO 18; CALCIUM 8.9 MG/DL (8.5-10.1); CARBON DIOXIDE 26 MMOL/L (21-32); CHLORIDE 107 MMOL/L (98-107); CREATININE SERUM 0.93 MG/DL (0.60-1.30); GFR ESTIMATED > 60; GLUCOSE 97 MG/DL (70-105); POTASSIUM 3.7 MMOL/L (3.6-5.0); SODIUM 141 MMOL/L (135-145); TOTAL PROTEIN 6.6 GM/DL (6.4-8.2)
== END 2017-01-06 15:12 | disposition home or self-care (01) ==
LOC: ONC 14:55
PROVIDERS: ATTEND Internal Medicine Hematology & Oncology
DX: Z51.11 Encounter for antineoplastic chemotherapy (principal); C50.212 Malignant neoplasm of upper-inner quadrant of left female breast; Z17.0 Estrogen receptor positive status [ER+]; F32.9 Major depressive disorder, single episode, unspecified; E11.9 Type 2 diabetes mellitus without complications; Z79.899 Other long term (current) drug therapy
CPT/HCPCS: 36591; 80053; 85025; 86300; 96375; 96413; 96417

== ENCOUNTER → 2017-01-06 | Outpatient (CLI) | payer MEDICARE ==
[~2017-01-06] MED LIST changes: -FAMOTIDINE 20MG/2ML IV (CANCER CTR) IV SCH; -NS IV 1000 ML (CANCER CTR) IV SCH; -NS IV SCH; -ONDANSETRON 16 MG, DEXAMETHASONE 10 MG/NS 50 ML IVPB IV SCH; -PERTUZUMAB 420 MG in NS (IVPB) CANCER CENTER 250 ML IV SCH; -TRASTUZUMAB IV SCH; -diphenhydrAMINE 25 MG TAB (BENADRYL) CANCER CENTER PO SCH
[2017-01-06 15:26] LABS: BASOPHILS % (AUTO) 1 % (0-10); EOSINOPHILS # (AUTO) 0.2 10^3/uL (0.0-0.3); EOSINOPHILS % (AUTO) 5 % (0-10); LYMPHOCYTES # (AUTO) 1.2 X 10^3 (1.0-4.0); LYMPHOCYTES % (AUTO) 26 % (12-44); MEAN CORPUSCULAR HEMOGLOBIN 30 PG (25-34); MEAN CORPUSCULAR HGB CONC 35 G/DL (32-36); MEAN CORPUSCULAR VOLUME 87 FL (80-99); MEAN PLATELET VOLUME 9.5 FL (7.4-10.4); MONOCYTES # (AUTO) 0.3 X 10^3 (0.0-1.0); MONOCYTES % (AUTO) 7 % (0-12); NEUTROPHILS # (AUTO) 2.8 X 10^3 (1.8-7.8); NEUTROPHILS % (AUTO) 61 % (42-75); PLATELET COUNT 135 10^3/uL (130-400); RED CELL DISTRIBUTION WIDTH 12.3 % (10.0-14.5); WHITE BLOOD COUNT 4.6 10^3/uL (4.3-11.0)
[2017-01-06 16:04] LABS: ALANINE AMINOTRANSFERASE 24 U/L (0-55); ANION GAP 10 MMOL/L (5-14); ASPARTATE AMINO TRANSFERASE 26 U/L (5-34); BILIRUBIN,TOTAL 0.4 MG/DL (0.1-1.0); BLOOD UREA NITROGEN 12 MG/DL (7-18); BUN/CREATININE RATIO 14; CALCIUM 9.4 MG/DL (8.5-10.1); CARBON DIOXIDE 23 MMOL/L (21-32); CHLORIDE 109 MMOL/L (98-107); CREATININE SERUM 0.87 MG/DL (0.60-1.30); GFR ESTIMATED > 60; GLUCOSE 98 MG/DL (70-105); POTASSIUM 3.7 MMOL/L (3.6-5.0); SODIUM 142 MMOL/L (135-145)
== END ==
LOC: ONC 15:12
PROVIDERS: ATTEND Internal Medicine Hematology & Oncology
DX: C50.212 Malignant neoplasm of upper-inner quadrant of left female breast (principal)
CPT/HCPCS: 80053; 85025; 86300

== ENCOUNTER → 2017-02-22 | Outpatient (CLI) | payer MEDICARE ==
[~2017-02-22] MED LIST changes: +BARIUM SUSPENSION 2.1% (VANILLA SILQ) 450 ML PO ONE; +CATHETER FLUSH 10 ML SYR IV PRN; +IOHEXOL 350 MG/ML 100 ML (OMNIPAQUE 350) VIAL IV ONE; +NS 100 ML (IVPB) BAG IV ONE
--- NOTE | 2017-02-22 09:48 | Diagnostic Imaging Report ---
PROCEDURE: CT chest, abdomen, and pelvis with contrast. TECHNIQUE: Multiple contiguous axial images were obtained through the chest, abdomen, and pelvis after the administration of intravenous contrast. DATE: 02/22/2017. COMPARISON: CT chest abdomen and pelvis 09/03/2016. 02/24/2016. CT abdomen with and without contrast 08/09/2013. PET/CT 04/28/2016. INDICATION: 46-year-old female, history of left breast cancer status post left lumpectomy. FINDINGS: There is no identified pulmonary nodule or mass. There is mild dependent atelectasis. There is no additional focal airspace consolidation. There is no pneumothorax. There is no pleural effusion. The central airways are patent. There is no identified central pulmonary embolus. There are limitations for evaluation of peripheral pulmonary emboli given the timing of the contrast bolus. The main pulmonary artery is unremarkable in caliber. The heart is not enlarged. There is no pericardial effusion. There is a right paratracheal lymph node on axial image 18 measuring approximately 16 mm in short axis and 2.2 cm in long axis which previously measured 1.5 x 2.1 cm in size on 09/03/2016. There is a subcarinal lymph node on axial image 28 currently measuring 10 mm in short axis which previously measured 11 mm in short axis on 09/03/2016. There are surgical clips in the left axilla likely relating to prior left axillary lymph node dissection. There is no additional identified mediastinal or hilar lymph node which meets CT size criteria for adenopathy. There is a round soft tissue attenuation nodule lateral to the right breast tissue on axial image 19 measuring 4 mm in size. This is more prominent since comparison exam. This is entirely nonspecific. There is no identified abnormally enlarged axillary lymph node. There is no visualized abnormal supraclavicular lymph node. The liver is normal in size and contour. There is no identified liver lesion. The main, right, and left portal veins are patent. The gallbladder is unremarkable. There is no intrahepatic or extrahepatic bile duct dilation. The main pancreatic duct is normal in caliber. Unremarkable appearance of the pancreatic parenchyma. The spleen is not enlarged. There is an accessory splenule on axial image 55. The adrenal glands are unremarkable. Unremarkable appearance of the renal parenchyma. The urinary collecting systems are not distended. There is no identified renal or ureteral stone. The urinary bladder is unremarkable in appearance. The uterus is not seen and may be surgically absent. The intestinal tract is not distended. There is no evidence of acute appendicitis. There is a small fat-containing umbilical hernia. There is no free intraperitoneal air. There is no drainable fluid collection. There is no free pelvic fluid. There is no identified abnormally enlarged lymph node within the abdomen or pelvis which meets CT size criteria for adenopathy. There is a sclerotic lesion in the left iliac bone on axial image 97 which measures 11 mm in size. This is unchanged since comparison exam. This is not specific. Internal attenuation is measured at 1058 Hounsfield units. This may relate to a benign bone island. There is a sclerotic lesion in the T7 vertebral body on axial image 29 measuring approximately 3 mm in size which is nonspecific. This is also unchanged since comparison exam. There is a mild lumbar levocurvature. There is no identified acute bony abnormality. IMPRESSION: CT CHEST, ABDOMEN AND PELVIS. 1. Right paratracheal lymph node currently measuring approximately 16 x 22 mm in size compared to 15 x 21 mm in size on 09/03/2016. This likely relates to site of lester metastasis. 2. Unchanged size of the subcarinal lymph node currently measuring 10 mm short axis. This was FDG avid on prior PET and likely relates to site of lester metastasis. 3. 4 mm soft tissue attenuation nodule in the subcutaneous tissues laterally superficial to the deltoid muscle. This is more prominent since comparison exam. This is entirely nonspecific. This is retrospectively seen on prior PET/CT of 04/28/2016 and is not FDG avid although the small size may limit sensitivity for detection of FDG uptake. 4. Sclerotic lesions in the left iliac bone and T7 vertebral body which are unchanged since at least 02/24/2016. The left iliac bone has internal attenuation measurements suggesting it is most likely a benign bone island. Additionally, this is not radiotracer avid on prior PET CT of 04/28/2016. Dictated by: Dictated on workstation # [id number]
== END ==
LOC: RAD 08:17
PROVIDERS: ATTEND Internal Medicine Hematology & Oncology
DX: C50.212 Malignant neoplasm of upper-inner quadrant of left female breast (principal); R59.0 Localized enlarged lymph nodes; M89.8X8 Other specified disorders of bone, other site; Z90.12 Acquired absence of left breast and nipple
CPT/HCPCS: 71260; 74177

== ENCOUNTER 2017-03-22 14:09 | Outpatient (RCR) | payer MEDICARE ==
[2017-01-26 14:56] LABS: BASOPHILS % (AUTO) 1 % (0-10); EOSINOPHILS # (AUTO) 0.2 10^3/uL (0.0-0.3); EOSINOPHILS % (AUTO) 6 % (0-10); HEMATOCRIT 36 % (35-52); HEMOGLOBIN 11.9 G/DL (11.5-16.0); LYMPHOCYTES # (AUTO) 1.1 X 10^3 (1.0-4.0); LYMPHOCYTES % (AUTO) 28 % (12-44); MEAN CORPUSCULAR HEMOGLOBIN 30 PG (25-34); MEAN CORPUSCULAR HGB CONC 34 G/DL (32-36); MEAN CORPUSCULAR VOLUME 88 FL (80-99); MEAN PLATELET VOLUME 9.8 FL (7.4-10.4); MONOCYTES # (AUTO) 0.3 X 10^3 (0.0-1.0); MONOCYTES % (AUTO) 7 % (0-12); NEUTROPHILS # (AUTO) 2.4 X 10^3 (1.8-7.8); NEUTROPHILS % (AUTO) 59 % (42-75); PLATELET COUNT 118 10^3/uL (130-400); RED BLOOD COUNT 4.04 10^6/uL (4.35-5.85); RED CELL DISTRIBUTION WIDTH 12.7 % (10.0-14.5)
[2017-01-26 15:16] LABS: ALANINE AMINOTRANSFERASE 42 U/L (0-55); ALKALINE PHOSPHATASE 83 U/L (40-136); BILIRUBIN,TOTAL 0.4 MG/DL (0.1-1.0); BUN/CREATININE RATIO 14; CARBON DIOXIDE 25 MMOL/L (21-32); CHLORIDE 105 MMOL/L (98-107); CREATININE SERUM 0.85 MG/DL (0.60-1.30); GFR ESTIMATED > 60; GLUCOSE 110 MG/DL (70-105); POTASSIUM 3.5 MMOL/L (3.6-5.0); SODIUM 140 MMOL/L (135-145); TOTAL PROTEIN 6.8 GM/DL (6.4-8.2)
[~2017-03-22] VITALS: Ht 175.3 cm; Wt 83.9 kg
[~2017-03-22 14:09] MED LIST changes: -BARIUM SUSPENSION 2.1% (VANILLA SILQ) 450 ML PO ONE; -CATHETER FLUSH 10 ML SYR IV PRN; +FAMOTIDINE 20MG/2ML IV (CANCER CTR) IV SCH; -IOHEXOL 350 MG/ML 100 ML (OMNIPAQUE 350) VIAL IV ONE; -NS 100 ML (IVPB) BAG IV ONE; +NS IV 1000 ML (CANCER CTR) IV SCH; +NS IV 500 ML (CANCER CENTER) 500 ML ONE; +NS IV SCH; +ONDANSETRON 16 MG, DEXAMETHASONE 10 MG/NS 50 ML IVPB IV SCH; +PERTUZUMAB 420 MG in NS (IVPB) CANCER CENTER 250 ML IV SCH; +TRASTUZUMAB IV SCH; +diphenhydrAMINE 25 MG TAB (BENADRYL) CANCER CENTER PO SCH
[2017-03-22 14:24] LABS: BASOPHILS # (AUTO) 0.1 10^3/uL (0.0-0.1); BASOPHILS % (AUTO) 1 % (0-10); EOSINOPHILS # (AUTO) 0.2 10^3/uL (0.0-0.3); EOSINOPHILS % (AUTO) 5 % (0-10); HEMATOCRIT 35 % (35-52); HEMOGLOBIN 12.3 G/DL (11.5-16.0); LYMPHOCYTES # (AUTO) 1.1 X 10^3 (1.0-4.0); LYMPHOCYTES % (AUTO) 25 % (12-44); MEAN CORPUSCULAR HEMOGLOBIN 30 PG (25-34); MEAN CORPUSCULAR HGB CONC 35 G/DL (32-36); MEAN CORPUSCULAR VOLUME 87 FL (80-99); MEAN PLATELET VOLUME 9.6 FL (7.4-10.4); MONOCYTES # (AUTO) 0.3 X 10^3 (0.0-1.0); MONOCYTES % (AUTO) 7 % (0-12); NEUTROPHILS # (AUTO) 2.7 X 10^3 (1.8-7.8); NEUTROPHILS % (AUTO) 62 % (42-75); PLATELET COUNT 121 10^3/uL (130-400); RED BLOOD COUNT 4.08 10^6/uL (4.35-5.85); RED CELL DISTRIBUTION WIDTH 12.7 % (10.0-14.5); WHITE BLOOD COUNT 4.3 10^3/uL (4.3-11.0)
[2017-03-22 14:45] LABS: ALANINE AMINOTRANSFERASE 38 U/L (0-55); ALBUMIN 4.1 GM/DL (3.2-4.5); ALKALINE PHOSPHATASE 77 U/L (40-136); BILIRUBIN,TOTAL 0.5 MG/DL (0.1-1.0); BUN/CREATININE RATIO 20; CALCIUM 9.4 MG/DL (8.5-10.1); CARBON DIOXIDE 24 MMOL/L (21-32); CHLORIDE 104 MMOL/L (98-107); CREATININE SERUM 0.82 MG/DL (0.60-1.30); GFR ESTIMATED > 60; GLUCOSE 139 MG/DL (70-105); POTASSIUM 3.6 MMOL/L (3.6-5.0); SODIUM 139 MMOL/L (135-145); TOTAL PROTEIN 7.3 GM/DL (6.4-8.2)
== END 2017-04-06 | disposition home or self-care (01) ==
LOC: ONC 14:09
PROVIDERS: ATTEND Internal Medicine Hematology & Oncology
DX: Z51.11 Encounter for antineoplastic chemotherapy (principal); C50.212 Malignant neoplasm of upper-inner quadrant of left female breast; Z17.0 Estrogen receptor positive status [ER+]; F32.9 Major depressive disorder, single episode, unspecified; E11.9 Type 2 diabetes mellitus without complications; Z79.899 Other long term (current) drug therapy
CPT/HCPCS: 36591; 80053; 85025; 86300; 96375; 96413; 96417; 99213

== ENCOUNTER → 2017-04-22 | Outpatient (CLI) | payer MEDICARE ==
[~2017-04-22] MED LIST changes: +CATHETER FLUSH 10 ML SYR IV PRN; -FAMOTIDINE 20MG/2ML IV (CANCER CTR) IV SCH; +HEParin (CENTRAL IV FLUSH) 500 UNIT/5 ML SYR ONE; -NS IV 1000 ML (CANCER CTR) IV SCH; -NS IV 500 ML (CANCER CENTER) 500 ML ONE; -NS IV SCH; -ONDANSETRON 16 MG, DEXAMETHASONE 10 MG/NS 50 ML IVPB IV SCH; -PERTUZUMAB 420 MG in NS (IVPB) CANCER CENTER 250 ML IV SCH; -TRASTUZUMAB IV SCH; -diphenhydrAMINE 25 MG TAB (BENADRYL) CANCER CENTER PO SCH
--- NOTE | 2017-04-22 16:09 | Diagnostic Imaging Report ---
INDICATION: Therapeutic drug monitoring. TECHNIQUE: Patient was administered 28.5 mCi technetium 99m labeled to the red blood cells and imaging over the heart was performed. FINDINGS: Left ventricular ejection fraction is calculated to be 67%. This compares with 66% on prior study from 03/19/2015. IMPRESSION: No change in left ventricular ejection fraction when comparison with study from 03/19/2015. Dictated by: Dictated on workstation # [id number]
== END ==
LOC: CARD 13:59
PROVIDERS: ATTEND Internal Medicine Hematology & Oncology
DX: Z51.81 Encounter for therapeutic drug level monitoring (principal); Z79.899 Other long term (current) drug therapy
CPT/HCPCS: 78472

== ENCOUNTER 2017-07-05 10:26 | Outpatient (RCR) | payer MEDICARE, OTHER ==
[2017-04-19 14:41] LABS: BASOPHILS % (AUTO) 1 % (0-10); EOSINOPHILS # (AUTO) 0.2 10^3/uL (0.0-0.3); EOSINOPHILS % (AUTO) 4 % (0-10); HEMATOCRIT 35 % (35-52); HEMOGLOBIN 11.9 G/DL (11.5-16.0); LYMPHOCYTES # (AUTO) 1.2 X 10^3 (1.0-4.0); LYMPHOCYTES % (AUTO) 28 % (12-44); MEAN CORPUSCULAR HEMOGLOBIN 30 PG (25-34); MEAN CORPUSCULAR HGB CONC 34 G/DL (32-36); MEAN CORPUSCULAR VOLUME 87 FL (80-99); MEAN PLATELET VOLUME 10.2 FL (7.4-10.4); MONOCYTES # (AUTO) 0.4 X 10^3 (0.0-1.0); MONOCYTES % (AUTO) 9 % (0-12); NEUTROPHILS # (AUTO) 2.5 X 10^3 (1.8-7.8); NEUTROPHILS % (AUTO) 59 % (42-75); PLATELET COUNT 126 10^3/uL (130-400); RED BLOOD COUNT 3.98 10^6/uL (4.35-5.85); RED CELL DISTRIBUTION WIDTH 12.8 % (10.0-14.5); WHITE BLOOD COUNT 4.2 10^3/uL (4.3-11.0)
[2017-04-19 14:57] LABS: ALBUMIN 4.1 GM/DL (3.2-4.5); BILIRUBIN,TOTAL 0.4 MG/DL (0.1-1.0); CALCIUM 9.4 MG/DL (8.5-10.1); CREATININE SERUM 1.04 MG/DL (0.60-1.30); POTASSIUM 3.7 MMOL/L (3.6-5.0); TOTAL PROTEIN 6.9 GM/DL (6.4-8.2)
[2017-06-15 16:05] LABS: BUN/CREATININE RATIO 16; GFR ESTIMATED > 60
[~2017-07-05 10:26] MED LIST changes: -CATHETER FLUSH 10 ML SYR IV PRN; +FAMOTIDINE 20MG/2ML IV (CANCER CTR) IV SCH; -HEParin (CENTRAL IV FLUSH) 500 UNIT/5 ML SYR ONE; +NS IV 1000 ML (CANCER CTR) IV SCH; +NS IV 500 ML (CANCER CENTER) 500 ML ONE; +NS IV SCH; +ONDANSETRON 16 MG, DEXAMETHASONE 10 MG/NS 50 ML IVPB IV SCH; +PERTUZUMAB 420 MG in NS (IVPB) CANCER CENTER 250 ML IV SCH; +TRASTUZUMAB IV SCH; +diphenhydrAMINE 25 MG TAB (BENADRYL) CANCER CENTER PO SCH
[2017-07-05 10:50] LABS: BASOPHILS % (AUTO) 0 % (0-10); EOSINOPHILS # (AUTO) 0.1 10^3/uL (0.0-0.3); EOSINOPHILS % (AUTO) 1 % (0-10); HEMATOCRIT 37 % (35-52); HEMOGLOBIN 12.4 G/DL (11.5-16.0); LYMPHOCYTES # (AUTO) 1.4 X 10^3 (1.0-4.0); LYMPHOCYTES % (AUTO) 14 % (12-44); MEAN CORPUSCULAR HEMOGLOBIN 30 PG (25-34); MEAN CORPUSCULAR HGB CONC 33 G/DL (32-36); MEAN CORPUSCULAR VOLUME 90 FL (80-99); MEAN PLATELET VOLUME 9.6 FL (7.4-10.4); MONOCYTES # (AUTO) 0.9 X 10^3 (0.0-1.0); MONOCYTES % (AUTO) 9 % (0-12); NEUTROPHILS # (AUTO) 7.5 X 10^3 (1.8-7.8); NEUTROPHILS % (AUTO) 76 % (42-75); PLATELET COUNT 166 10^3/uL (130-400); RED BLOOD COUNT 4.14 10^6/uL (4.35-5.85); RED CELL DISTRIBUTION WIDTH 14.2 % (10.0-14.5); WHITE BLOOD COUNT 9.9 10^3/uL (4.3-11.0)
[2017-07-05 11:08] LABS: ALANINE AMINOTRANSFERASE 27 U/L (0-55); ALBUMIN 4.1 GM/DL (3.2-4.5); ALKALINE PHOSPHATASE 85 U/L (40-136); BILIRUBIN,TOTAL 0.4 MG/DL (0.1-1.0); BUN/CREATININE RATIO 23; CALCIUM 9.5 MG/DL (8.5-10.1); CARBON DIOXIDE 25 MMOL/L (21-32); CHLORIDE 108 MMOL/L (98-107); CREATININE SERUM 0.74 MG/DL (0.60-1.30); GFR ESTIMATED > 60; GLUCOSE 107 MG/DL (70-105); SODIUM 142 MMOL/L (135-145); TOTAL PROTEIN 6.9 GM/DL (6.4-8.2)
== END 2017-07-18 | disposition home or self-care (01) ==
LOC: ONC 10:26
PROVIDERS: ATTEND Internal Medicine Hematology & Oncology
DX: Z51.11 Encounter for antineoplastic chemotherapy (principal); Z51.0 Encounter for antineoplastic radiation therapy; C50.212 Malignant neoplasm of upper-inner quadrant of left female breast; Z17.0 Estrogen receptor positive status [ER+]; F32.9 Major depressive disorder, single episode, unspecified; E11.9 Type 2 diabetes mellitus without complications; Z79.899 Other long term (current) drug therapy
CPT/HCPCS: 36591; 77290; 77295; 77300; 77334; 77336; 77417; 77470; 80053; 82565; 84443; 84520; 85025; 86300; 96375; 96413; 96417; 99205; 99213

== ENCOUNTER → 2017-08-30 | Outpatient (CLI) | payer MEDICARE, OTHER ==
[~2017-08-30] MED LIST changes: -FAMOTIDINE 20MG/2ML IV (CANCER CTR) IV SCH; +GADOBUTROL 10 MMOL/10 ML (GADAVIST) VIAL IV ONE; -NS IV 1000 ML (CANCER CTR) IV SCH; -NS IV 500 ML (CANCER CENTER) 500 ML ONE; -NS IV SCH; -ONDANSETRON 16 MG, DEXAMETHASONE 10 MG/NS 50 ML IVPB IV SCH; -PERTUZUMAB 420 MG in NS (IVPB) CANCER CENTER 250 ML IV SCH; -TRASTUZUMAB IV SCH; -diphenhydrAMINE 25 MG TAB (BENADRYL) CANCER CENTER PO SCH
--- NOTE | 2017-08-30 12:29 | Diagnostic Imaging Report ---
PROCEDURE: MR imaging of the brain with and without contrast. TECHNIQUE: Multiplanar, multisequence MR imaging of the brain was performed with and without contrast. INDICATION: Brain tumor, status post surgery in May 2017. Study is performed for followup. COMPARISON: Correlation is made with outside MRI of the brain performed 05/23/2017. FINDINGS: Postsurgical changes of right temporoparietal craniotomy are noted. There has been resection of the large mass located in the right temporoparietal lobe seen on prior MRI. There is some CSF signal intensity noted at the surgical bed consistent with encephalomalacia. No acute intra-axial or extra-axial hemorrhage is seen. Ventricular size is stable. No mass effect is identified on today's exam. There is no midline shift. Post contrast images demonstrate some mild enhancement along the dura at the surgical bed. Thin enhancement along the surgical cavity is seen. The medial margin of the cavity does show some minimal enhancement which is inseparable from the adjacent choroid plexus of the right lateral ventricle. Continued close followup is recommended. Cisterns are patent. No new region of enhancement is seen. IMPRESSION: Postsurgical changes with tumor resection on the right, as described. There has been significant improved appearance to the brain when compared with MRI from 05/23/2017. Minimal enhancement along the dura at the surgical site is seen. Minimal enhancement along the medial margin adjacent to the choroid plexus is also noted indeterminate. Continued close followup is recommended to confirm stability. Dictated by: Dictated on workstation # [id number]
== END ==
LOC: RAD 10:30
PROVIDERS: ATTEND Internal Medicine Hematology & Oncology
DX: C79.31 Secondary malignant neoplasm of brain (principal); C50.212 Malignant neoplasm of upper-inner quadrant of left female breast
CPT/HCPCS: 70553

== ENCOUNTER 2017-09-01 13:07 | Outpatient (RCR) | payer MEDICARE, OTHER ==
[2017-07-20 14:08] LABS: BASOPHILS % (AUTO) 1 % (0-10); EOSINOPHILS # (AUTO) 0.1 10^3/uL (0.0-0.3); EOSINOPHILS % (AUTO) 3 % (0-10); HEMATOCRIT 32 % (35-52); LYMPHOCYTES # (AUTO) 0.9 X 10^3 (1.0-4.0); LYMPHOCYTES % (AUTO) 23 % (12-44); MEAN CORPUSCULAR HGB CONC 34 G/DL (32-36); MEAN CORPUSCULAR VOLUME 89 FL (80-99); MEAN PLATELET VOLUME 9.1 FL (7.4-10.4); MONOCYTES # (AUTO) 0.4 X 10^3 (0.0-1.0); MONOCYTES % (AUTO) 10 % (0-12); NEUTROPHILS # (AUTO) 2.4 X 10^3 (1.8-7.8); NEUTROPHILS % (AUTO) 64 % (42-75); PLATELET COUNT 166 10^3/uL (130-400); RED BLOOD COUNT 3.61 10^6/uL (4.35-5.85); RED CELL DISTRIBUTION WIDTH 13.9 % (10.0-14.5); WHITE BLOOD COUNT 3.8 10^3/uL (4.3-11.0)
[2017-07-20 14:09] LABS: MEAN CORPUSCULAR HEMOGLOBIN 30 PG (25-34)
[2017-07-20 14:27] LABS: ALANINE AMINOTRANSFERASE 21 U/L (0-55); ALBUMIN 3.8 GM/DL (3.2-4.5); ALKALINE PHOSPHATASE 73 U/L (40-136); BILIRUBIN,TOTAL 0.4 MG/DL (0.1-1.0); BUN/CREATININE RATIO 14; CALCIUM 8.5 MG/DL (8.5-10.1); CARBON DIOXIDE 22 MMOL/L (21-32); CHLORIDE 110 MMOL/L (98-107); GFR ESTIMATED > 60; GLUCOSE 138 MG/DL (70-105); POTASSIUM 3.8 MMOL/L (3.6-5.0); SODIUM 142 MMOL/L (135-145); TOTAL PROTEIN 6.4 GM/DL (6.4-8.2)
[2017-08-10 09:40] LABS: BASOPHILS % (AUTO) 1 % (0-10); EOSINOPHILS # (AUTO) 0.1 10^3/uL (0.0-0.3); EOSINOPHILS % (AUTO) 2 % (0-10); HEMATOCRIT 32 % (35-52); HEMOGLOBIN 11.2 G/DL (11.5-16.0); LYMPHOCYTES # (AUTO) 0.8 X 10^3 (1.0-4.0); LYMPHOCYTES % (AUTO) 22 % (12-44); MEAN CORPUSCULAR HEMOGLOBIN 31 PG (25-34); MEAN CORPUSCULAR HGB CONC 35 G/DL (32-36); MEAN CORPUSCULAR VOLUME 87 FL (80-99); MEAN PLATELET VOLUME 9.5 FL (7.4-10.4); MONOCYTES # (AUTO) 0.3 X 10^3 (0.0-1.0); MONOCYTES % (AUTO) 8 % (0-12); NEUTROPHILS # (AUTO) 2.4 X 10^3 (1.8-7.8); NEUTROPHILS % (AUTO) 67 % (42-75); PLATELET COUNT 153 10^3/uL (130-400); RED BLOOD COUNT 3.65 10^6/uL (4.35-5.85); RED CELL DISTRIBUTION WIDTH 12.9 % (10.0-14.5); WHITE BLOOD COUNT 3.5 10^3/uL (4.3-11.0)
[2017-08-10 10:02] LABS: ALANINE AMINOTRANSFERASE 23 U/L (0-55); ALKALINE PHOSPHATASE 66 U/L (40-136); BILIRUBIN,TOTAL 0.5 MG/DL (0.1-1.0); BUN/CREATININE RATIO 26; CALCIUM 9.4 MG/DL (8.5-10.1); CARBON DIOXIDE 25 MMOL/L (21-32); CHLORIDE 109 MMOL/L (98-107); CREATININE SERUM 0.77 MG/DL (0.60-1.30); GFR ESTIMATED > 60; GLUCOSE 87 MG/DL (70-105); SODIUM 141 MMOL/L (135-145); TOTAL PROTEIN 6.5 GM/DL (6.4-8.2)
[~2017-09-01] VITALS: Ht 175.3 cm; Wt 92.1 kg
[~2017-09-01 13:07] MED LIST changes: +ACETAMINOPHEN 500 MG TAB (TYLENOL) CANCER CTR ONE; +ACETAMINOPHEN 500 MG TAB (TYLENOL) CANCER CTR PO PRN; -GADOBUTROL 10 MMOL/10 ML (GADAVIST) VIAL IV ONE; +NS IV 500 ML (CANCER CENTER) IV SCH; +NS IV SCH; +TRASTUZUMAB IV SCH; +diphenhydrAMINE 25 MG TAB (BENADRYL) CANCER CENTER PO ONE; +diphenhydrAMINE 25 MG TAB (BENADRYL) CANCER CENTER PO SCH
[2017-09-01 13:34] LABS: BASOPHILS % (AUTO) 1 % (0-10); EOSINOPHILS # (AUTO) 0.1 10^3/uL (0.0-0.3); EOSINOPHILS % (AUTO) 2 % (0-10); HEMATOCRIT 33 % (35-52); HEMOGLOBIN 11.5 G/DL (11.5-16.0); LYMPHOCYTES % (AUTO) 23 % (12-44); MEAN CORPUSCULAR HEMOGLOBIN 30 PG (25-34); MEAN CORPUSCULAR HGB CONC 35 G/DL (32-36); MEAN CORPUSCULAR VOLUME 87 FL (80-99); MEAN PLATELET VOLUME 10.1 FL (7.4-10.4); MONOCYTES # (AUTO) 0.4 X 10^3 (0.0-1.0); MONOCYTES % (AUTO) 8 % (0-12); NEUTROPHILS # (AUTO) 2.8 X 10^3 (1.8-7.8); NEUTROPHILS % (AUTO) 66 % (42-75); PLATELET COUNT 151 10^3/uL (130-400); RED CELL DISTRIBUTION WIDTH 12.7 % (10.0-14.5); WHITE BLOOD COUNT 4.2 10^3/uL (4.3-11.0)
[2017-09-01 13:58] LABS: ALANINE AMINOTRANSFERASE 18 U/L (0-55); ALBUMIN 4.1 GM/DL (3.2-4.5); ALKALINE PHOSPHATASE 63 U/L (40-136); BILIRUBIN,TOTAL 0.4 MG/DL (0.1-1.0); BUN/CREATININE RATIO 15; CALCIUM 9.3 MG/DL (8.5-10.1); CARBON DIOXIDE 26 MMOL/L (21-32); CHLORIDE 109 MMOL/L (98-107); CREATININE SERUM 0.79 MG/DL (0.60-1.30); GFR ESTIMATED > 60; GLUCOSE 122 MG/DL (70-105); POTASSIUM 3.8 MMOL/L (3.6-5.0); SODIUM 140 MMOL/L (135-145); TOTAL PROTEIN 6.6 GM/DL (6.4-8.2)
== END 2017-09-23 11:41 | disposition home or self-care (01) ==
LOC: ONC 13:07
PROVIDERS: ATTEND Internal Medicine Hematology & Oncology
DX: Z51.11 Encounter for antineoplastic chemotherapy (principal); C50.212 Malignant neoplasm of upper-inner quadrant of left female breast; Z17.0 Estrogen receptor positive status [ER+]; F32.9 Major depressive disorder, single episode, unspecified; E11.9 Type 2 diabetes mellitus without complications; Z79.899 Other long term (current) drug therapy
CPT/HCPCS: 36591; 80053; 85025; 86300; 96413

== ENCOUNTER → 2017-09-23 | Outpatient (CLI) | payer MEDICARE, OTHER ==
[~2017-09-23] MED LIST changes: -ACETAMINOPHEN 500 MG TAB (TYLENOL) CANCER CTR ONE; -ACETAMINOPHEN 500 MG TAB (TYLENOL) CANCER CTR PO PRN; +CATHETER FLUSH 10 ML SYR IV PRN; +HEParin (CENTRAL IV FLUSH) 500 UNIT/5 ML SYR ONE; -NS IV 500 ML (CANCER CENTER) IV SCH; -NS IV SCH; -TRASTUZUMAB IV SCH; -diphenhydrAMINE 25 MG TAB (BENADRYL) CANCER CENTER PO ONE; -diphenhydrAMINE 25 MG TAB (BENADRYL) CANCER CENTER PO SCH
--- NOTE | 2017-09-23 18:05 | Diagnostic Imaging Report ---
INDICATION: Therapeutic drug monitoring. Patient has history of breast carcinoma. COMPARISON: Correlation is made with prior exam from 04/22/2017. TECHNIQUE: The patient was administered 31.2 mCi technetium 99m pertechnetate labeled to the red blood cells and imaging over the chest was performed. FINDINGS: Left ventricular ejection fraction was calculated to be 60%. This compares with 67% on prior exam. IMPRESSION: Continued normal left ventricular ejection fraction of 60%. Dictated by: Dictated on workstation # [id number]
== END ==
LOC: CARD 13:33
PROVIDERS: ATTEND Internal Medicine Hematology & Oncology
DX: Z51.81 Encounter for therapeutic drug level monitoring (principal); C50.212 Malignant neoplasm of upper-inner quadrant of left female breast; Z79.899 Other long term (current) drug therapy
CPT/HCPCS: 78472

== ENCOUNTER 2017-11-04 13:07 | Outpatient (RCR) | payer MEDICARE, OTHER ==
[2017-10-14 09:35] LABS: BASOPHILS % (AUTO) 1 % (0-10); EOSINOPHILS # (AUTO) 0.1 10^3/uL (0.0-0.3); EOSINOPHILS % (AUTO) 2 % (0-10); HEMATOCRIT 34 % (35-52); HEMOGLOBIN 11.7 G/DL (11.5-16.0); LYMPHOCYTES # (AUTO) 0.8 X 10^3 (1.0-4.0); LYMPHOCYTES % (AUTO) 20 % (12-44); MEAN CORPUSCULAR HEMOGLOBIN 30 PG (25-34); MEAN CORPUSCULAR HGB CONC 35 G/DL (32-36); MEAN CORPUSCULAR VOLUME 85 FL (80-99); MEAN PLATELET VOLUME 9.3 FL (7.4-10.4); MONOCYTES # (AUTO) 0.3 X 10^3 (0.0-1.0); MONOCYTES % (AUTO) 8 % (0-12); NEUTROPHILS # (AUTO) 2.7 X 10^3 (1.8-7.8); NEUTROPHILS % (AUTO) 70 % (42-75); PLATELET COUNT 145 10^3/uL (130-400); RED BLOOD COUNT 3.94 10^6/uL (4.35-5.85); RED CELL DISTRIBUTION WIDTH 12.6 % (10.0-14.5); WHITE BLOOD COUNT 3.9 10^3/uL (4.3-11.0)
[2017-10-14 09:57] LABS: ALANINE AMINOTRANSFERASE 20 U/L (0-55); ALBUMIN 4.3 GM/DL (3.2-4.5); ALKALINE PHOSPHATASE 64 U/L (40-136); BILIRUBIN,TOTAL 0.7 MG/DL (0.1-1.0); BUN/CREATININE RATIO 15; CALCIUM 9.6 MG/DL (8.5-10.1); CARBON DIOXIDE 22 MMOL/L (21-32); CHLORIDE 110 MMOL/L (98-107); CREATININE SERUM 0.86 MG/DL (0.60-1.30); GFR ESTIMATED > 60; GLUCOSE 101 MG/DL (70-105); POTASSIUM 3.7 MMOL/L (3.6-5.0); SODIUM 143 MMOL/L (135-145); TOTAL PROTEIN 6.9 GM/DL (6.4-8.2)
[~2017-11-04] VITALS: Ht 175.3 cm; Wt 86.2 kg
[~2017-11-04 13:07] MED LIST changes: +ACETAMINOPHEN 500 MG TAB (TYLENOL) CANCER CTR ONE; +ACETAMINOPHEN 500 MG TAB (TYLENOL) CANCER CTR PO PRN; -CATHETER FLUSH 10 ML SYR IV PRN; -HEParin (CENTRAL IV FLUSH) 500 UNIT/5 ML SYR ONE; +NS IV 500 ML (CANCER CENTER) IV SCH; +NS IV SCH; +TRASTUZUMAB IV SCH; +diphenhydrAMINE 25 MG TAB (BENADRYL) CANCER CENTER PO SCH
[2017-11-04 13:35] LABS: BASOPHILS % (AUTO) 1 % (0-10); EOSINOPHILS # (AUTO) 0.1 10^3/uL (0.0-0.3); EOSINOPHILS % (AUTO) 3 % (0-10); HEMATOCRIT 33 % (35-52); HEMOGLOBIN 11.6 G/DL (11.5-16.0); LYMPHOCYTES % (AUTO) 21 % (12-44); MEAN CORPUSCULAR HEMOGLOBIN 30 PG (25-34); MEAN CORPUSCULAR HGB CONC 35 G/DL (32-36); MEAN CORPUSCULAR VOLUME 85 FL (80-99); MEAN PLATELET VOLUME 9.4 FL (7.4-10.4); MONOCYTES # (AUTO) 0.4 X 10^3 (0.0-1.0); MONOCYTES % (AUTO) 9 % (0-12); NEUTROPHILS # (AUTO) 3.2 X 10^3 (1.8-7.8); NEUTROPHILS % (AUTO) 67 % (42-75); PLATELET COUNT 154 10^3/uL (130-400); RED BLOOD COUNT 3.88 10^6/uL (4.35-5.85); RED CELL DISTRIBUTION WIDTH 12.7 % (10.0-14.5); WHITE BLOOD COUNT 4.7 10^3/uL (4.3-11.0)
[2017-11-04 13:57] LABS: ALANINE AMINOTRANSFERASE 30 U/L (0-55); ALBUMIN 4.3 GM/DL (3.2-4.5); ALKALINE PHOSPHATASE 70 U/L (40-136); BILIRUBIN,TOTAL 0.7 MG/DL (0.1-1.0); BUN/CREATININE RATIO 13; CALCIUM 9.6 MG/DL (8.5-10.1); CARBON DIOXIDE 24 MMOL/L (21-32); CHLORIDE 107 MMOL/L (98-107); CREATININE SERUM 0.83 MG/DL (0.60-1.30); GFR ESTIMATED > 60; GLUCOSE 105 MG/DL (70-105); POTASSIUM 3.6 MMOL/L (3.6-5.0); SODIUM 139 MMOL/L (135-145); TOTAL PROTEIN 7.1 GM/DL (6.4-8.2)
== END 2017-12-16 10:10 | disposition home or self-care (01) ==
LOC: ONC 13:07
PROVIDERS: ATTEND Internal Medicine Hematology & Oncology
DX: Z51.11 Encounter for antineoplastic chemotherapy (principal); C50.212 Malignant neoplasm of upper-inner quadrant of left female breast; Z17.0 Estrogen receptor positive status [ER+]; F32.9 Major depressive disorder, single episode, unspecified; E11.9 Type 2 diabetes mellitus without complications; Z79.899 Other long term (current) drug therapy
CPT/HCPCS: 36591; 78472; 80053; 85025; 86300; 96413

== ENCOUNTER → 2017-12-09 | Outpatient (CLI) | payer MEDICARE, OTHER ==
[~2017-12-09] MED LIST changes: -ACETAMINOPHEN 500 MG TAB (TYLENOL) CANCER CTR ONE; -ACETAMINOPHEN 500 MG TAB (TYLENOL) CANCER CTR PO PRN; +BARIUM SUSPENSION 2.1% (VANILLA SILQ) 450 ML PO ONE; +GADOBUTROL 10 MMOL/10 ML (GADAVIST) VIAL IV ONE; +IOHEXOL 350 MG/ML 100 ML (OMNIPAQUE 350) VIAL IV ONE; +NS 250 ML (IVPB) BAG IV ONE; -NS IV 500 ML (CANCER CENTER) IV SCH; -NS IV SCH; -TRASTUZUMAB IV SCH; -diphenhydrAMINE 25 MG TAB (BENADRYL) CANCER CENTER PO SCH
--- NOTE | 2017-12-09 12:28 | Diagnostic Imaging Report ---
PROCEDURE: CT chest and abdomen with contrast. TECHNIQUE: Multiple contiguous axial images were obtained through the chest and abdomen after the administration of intravenous contrast. INDICATION: Left breast carcinoma and metastatic disease. Comparison is made to previous study of 02/22/2017 as well as intervening outside study dated 05/23/2017. FINDINGS: There has been adverse change with increase in size of mediastinal lymph nodes. Right paratracheal lymph node now measures approximately 2.3 x 1.6 cm with pretracheal lymph node at the level of left brachiocephalic vein measuring 1.6 x 0.7 cm. This nodule measured approximately 1.1 x 0.6 cm on the previous study. There is also an enlarged lymph node interposed between the innominate artery and the left common carotid artery which reaches 1.2 cm in diameter. This nodule is barely visible on the previous study. Subcarinal lymph node is present to the right of midline and measures approximately 1.6 x 0.8 cm. This previously measured 1.7 x 1.0 cm. There is no significant pleural or pericardial fluid. Operative findings and architectural distortion are again noted in the left breast and axilla. The lungs remain clear without evidence of significant pleural or pericardial fluid. IMPRESSION: Overall increase in size of upper mediastinal lymph nodes compared to the previous examination. Otherwise, no new abnormality is identified in the chest. CT abdomen: FINDINGS: There is mild low density throughout the liver without evidence of focal hepatic or splenic lesion. No gallbladder, pancreatic or adrenal gland abnormality is identified. Kidneys have a normal appearance. There is no evidence of pathologic adenopathy within the abdomen. There is no free fluid or localized inflammation. Stable sclerotic focus is again included in the medial left iliac bone. IMPRESSION: Fatty infiltration of the liver with otherwise unremarkable abdominal CT. Dictated by: Dictated on workstation # [id number]
--- NOTE | 2017-12-09 13:26 | Diagnostic Imaging Report ---
PROCEDURE: MR imaging of the brain with and without contrast. TECHNIQUE: Multiplanar, multisequence MR imaging of the brain was performed with and without contrast. INDICATION: Brain tumor, status post surgery in May 2017. Patient presents for three-month followup. COMPARISON: Correlation is made with prior MRI of the brain from 08/30/2017. FINDINGS: Postsurgical changes right temporoparietal craniotomy and tumor resection are again seen. Ventricular size appears stable. Minimal dural enhancement at the surgical site is again seen. Previously noted minimal enhancement along the medial aspect of the surgical bed appears very similar to prior exam. This is best seen on the coronal sequence. No new region of contrast enhancement is identified. No diffusion restriction is seen. There is no hemorrhage. Normal expected flow-voids within the carotid siphons are seen. IMPRESSION: Overall stable MRI of the brain with and without contrast. There are postsurgical changes of right temporoparietal craniotomy and tumor resection. Minimal enhancement along the medial resection margin appears stable. Continued followup is recommended. Dictated by: Dictated on workstation # [id number]
== END ==
LOC: RAD 11:17
PROVIDERS: ATTEND Internal Medicine Hematology & Oncology
DX: C50.212 Malignant neoplasm of upper-inner quadrant of left female breast (principal); D49.6 Neoplasm of unspecified behavior of brain; K76.0 Fatty (change of) liver, not elsewhere classified; R59.0 Localized enlarged lymph nodes; Z85.9 Personal history of malignant neoplasm, unspecified; Z98.890 Other specified postprocedural states
CPT/HCPCS: 70553; 71260; 74160

== ENCOUNTER 2018-01-08 15:04 | Emergency (ER) | payer MEDICARE ==
[~2018-01-08] VITALS: Ht 177.8 cm; Wt 86.2 kg
[~2018-01-08 15:04] MED LIST changes: -BARIUM SUSPENSION 2.1% (VANILLA SILQ) 450 ML PO ONE; -GADOBUTROL 10 MMOL/10 ML (GADAVIST) VIAL IV ONE; -IOHEXOL 350 MG/ML 100 ML (OMNIPAQUE 350) VIAL IV ONE; -NS 250 ML (IVPB) BAG IV ONE
[2018-01-08] MEDS ORDERED: HYDROmorphone 2 MG/ML VIAL (DILAUDID) IV ONE ×3 (15:30→18:15)
[2018-01-08 15:49] LABS: BASOPHILS % (AUTO) 0 % (0-10); EOSINOPHILS % (AUTO) 0 % (0-10); HEMATOCRIT 30 % (35-52); HEMOGLOBIN 10.2 G/DL (11.5-16.0); LYMPHOCYTES # (AUTO) 0.6 X 10^3 (1.0-4.0); LYMPHOCYTES % (AUTO) 8 % (12-44); MEAN CORPUSCULAR HEMOGLOBIN 30 PG (25-34); MEAN CORPUSCULAR HGB CONC 34 G/DL (32-36); MEAN CORPUSCULAR VOLUME 88 FL (80-99); MEAN PLATELET VOLUME 9.9 FL (7.4-10.4); MONOCYTES # (AUTO) 0.2 X 10^3 (0.0-1.0); MONOCYTES % (AUTO) 3 % (0-12); NEUTROPHILS # (AUTO) 5.9 X 10^3 (1.8-7.8); NEUTROPHILS % (AUTO) 89 % (42-75); PLATELET COUNT 145 10^3/uL (130-400); RED BLOOD COUNT 3.43 10^6/uL (4.35-5.85); RED CELL DISTRIBUTION WIDTH 13.2 % (10.0-14.5); WHITE BLOOD COUNT 6.6 10^3/uL (4.3-11.0)
[2018-01-08 16:06] LABS: LYMPHOCYTES % (MANUAL) 10 %; MONOCYTES % (MANUAL) 1 %; NEUTROPHILS % (MANUAL) 89 %; RBC MORPH NORMAL
[2018-01-08 16:09] LABS: ALANINE AMINOTRANSFERASE 25 U/L (0-55); ALBUMIN 3.9 GM/DL (3.2-4.5); ALKALINE PHOSPHATASE 73 U/L (40-136); BILIRUBIN,TOTAL 0.4 MG/DL (0.1-1.0); BUN/CREATININE RATIO 24; CALCIUM 8.7 MG/DL (8.5-10.1); CARBON DIOXIDE 21 MMOL/L (21-32); CHLORIDE 109 MMOL/L (98-107); CREATININE SERUM 0.84 MG/DL (0.60-1.30); GFR ESTIMATED > 60; GLUCOSE 181 MG/DL (70-105); LIPASE 192 U/L (8-78); POTASSIUM 3.6 MMOL/L (3.6-5.0); SODIUM 141 MMOL/L (135-145); TOTAL PROTEIN 6.4 GM/DL (6.4-8.2)
[2018-01-08 16:13] LABS: BILIRUBIN,URINE NEGATIVE (NEGATIVE); CLARITY,URINE CLEAR; COLOR,URINE YELLOW; GLUCOSE, URINE (UA) NEGATIVE (NEGATIVE); KETONES,URINE NEGATIVE (NEGATIVE); LEUKOCYTE ESTERASE ,URINE 1+ (NEGATIVE); NITRITE,URINE NEGATIVE (NEGATIVE); PH,URINE 6 (5-9); PROTEIN,URINE NEGATIVE (NEGATIVE); UROBILINOGEN,URINE NORMAL (NORMAL)
[2018-01-08 16:21] LABS: BACTERIA,URINE NEGATIVE /HPF; SQUAMOUS EPITHELIAL CELL,UR 0-2 /HPF; WBC,URINE 0-2 /HPF
--- NOTE | 2018-01-08 16:24 | ED General ---
General Chief Complaint: Abdominal/GI Problems Stated Complaint: HX OF CANCER/SPOT FOUND ON CT/R SIDE PAIN Nursing Triage Note: PT PRESENTS TO ED WITH COMPLAINTS OF R SIDE PAIN FOR A FEW DAYS. REPORTS IT IS WORSE WITH MOVEMENT. SHE WAS SEEN AT [facility] ON 01/06/18 AND TOLD SHE HAD A QUESTIONABLE SPOT ON HER R SIDE THAT SHOWED UP ON CT WHICH NEEDED FOLLOW UP. Nursing Sepsis Screen: No Definite Risk Source of Information: Patient Exam Limitations: No Limitations History of Present Illness Date Seen by Provider: Jan 08, 2018 Time Seen by Provider: 16:22 Initial Comments To ER with worse right upper abdominal lower lateral chest pain. She took 2 of her hydrocodone at home without relief at about noon today. He has been present for 2-3 days and is worse with movement and deep breathing. She was seen at [facility] a few days ago and diagnosed with pleurisy. She has a history of infiltrating ductal carcinoma of the right breast treated with Herceptin which was stopped in September 2016. This had metastasized to the brain and she had brain metastasis resected from the right temporoparietal lobe. She follows with Dr. Smith here. She denies fevers or chills. States that she tries very hard not to cough because it hurts Timing/Duration: 3-4 Days Severity: Moderate Allergies and Home Medications Allergies Coded Allergies: latex (Verified Allergy, Unknown, 12/08/13) Home Medications Anastrozole 1 Mg Tab, 1 MG PO DAILY, (Reported) Calcium Carbonate/Vitamin D3 1 Each Tablet, 1 EACH PO DAILY, (Reported) Cyanocobalamin 1,000 Mcg Tablet.sa, 1,000 MCG PO DAILY, (Reported) Multivitamins 1 Each Capsule, 1 EACH PO DAILY, (Reported) Potassium Gluconate 99 Mg Tablet, 99 MG PO DAILY, (Reported) Pseudoephedrine Hcl 120 Mg Tablet.sa, 120 MG PO PRN PRN for CONGESTION, ( Reported) [Allergy Injections] , SQ WEEKLY, (Reported) Patient Home Medication List Home Medication List Reviewed: Yes Review of Systems Review of Systems Constitutional: see HPI; No chills, No fever EENTM: see HPI Respiratory: see HPI; No cough, No dyspnea on exertion Cardiovascular: no symptoms reported Genitourinary: no symptoms reported Musculoskeletal: no symptoms reported Skin: no symptoms reported Psychiatric/Neurological: No Symptoms Reported Hematologic/Lymphatic: No Symptoms Reported Past Kfkucbk-Cjijur-Tstdiv Hx Patient Social History Alcohol Use: Denies Use Recreational Drug Use: No Smoking Status: Never a Smoker Recent Foreign Travel: No Contact w/Someone Who Travel: No Recent Infectious Disease Expo: No Recent Hopitalizations: Yes (child , breast biopsy) Physical Abuse: No Sexual Abuse: No Mistreated: No Fear: No Past Medical History Surgeries: Yes (breast biopsy, LUMPECTOMY, PORT REMOVAL, BRAIN) Respiratory: No Cardiac: No Neurological: No Reproductive Disorders: No Sexually Transmitted Disease: No Gastrointestinal: No Musculoskeletal: No Endocrine: No HEENT: No Cancer: Yes (BREAST WITH METS TO BRAIN) Breast Psychosocial: No Blood Disorders: No Physical Exam Vital Signs Vital Signs - First Documented 01/08/18 15:53 Temp 97.2 Pulse 100 Resp 16 B/P (MAP) 121/71 (88) Pulse Ox 98 Capillary Refill : Less Than 3 Seconds Height, Weight, BMI Height: 5'10.00" Weight: 190lbs. oz. 86.662736fs; BMI Method:Stated General Appearance: No Apparent Distress, WD/WN Eyes: Bilateral Eye Normal Inspection, Bilateral Eye PERRL, Bilateral Eye EOMI HEENT: PERRL/EOMI, TMs Normal Respiratory: Lungs Clear, Normal Breath Sounds, No Accessory Muscle Use, No Respiratory Distress, Other (right lateral chest wall is very tender to palpation) Cardiovascular: Regular Rate, Rhythm, Normal Peripheral Pulses Gastrointestinal: Normal Bowel Sounds, Non Tender, Soft Extremity: Normal Capillary Refill, Normal Inspection Neurologic/Psychiatric: Alert, Oriented x3, No Motor/Sensory Deficits Skin: Normal Color, Warm/Dry Progress/Results/Core Measures Suspected Sepsis Recent Fever Within 48 Hours: No Infection Criteria Present: None New/Unexplained Altered Menta: No Sepsis Screen: No Definite Risk SIRS Temperature:97.2 Pulse: 100 Respiratory Rate: 16 Laboratory Tests 01/08/18 15:43: White Blood Count 6.6 Blood Pressure 121 /71 Mean: 88 Laboratory Tests 01/08/18 15:43: Creatinine 0.84, Platelet Count 145, Total Bilirubin 0.4 Results/Orders Lab Results Laboratory Tests Test 01/08/18 15:43 01/08/18 16:00 Range/Units White Blood Count 6.6 4.3-11.0 10^3/uL Red Blood Count 3.43 L 4.35-5.85 10^6/uL Hemoglobin 10.2 L 11.5-16.0 G/DL Hematocrit 30 L 35-52 % Mean Corpuscular Volume 88 80-99 FL Mean Corpuscular Hemoglobin 30 25-34 PG Mean Corpuscular Hemoglobin Concent 34 32-36 G/DL Red Cell Distribution Width 13.2 10.0-14.5 % Platelet Count 145 130-400 10^3/uL Mean Platelet Volume 9.9 7.4-10.4 FL Neutrophils (%) (Auto) 89 H 42-75 % Lymphocytes (%) (Auto) 8 L 12-44 % Monocytes (%) (Auto) 3 0-12 % Eosinophils (%) (Auto) 0 0-10 % Basophils (%) (Auto) 0 0-10 % Neutrophils # (Auto) 5.9 1.8-7.8 X 10^3 Lymphocytes # (Auto) 0.6 L 1.0-4.0 X 10^3 Monocytes # (Auto) 0.2 0.0-1.0 X 10^3 Eosinophils # (Auto) 0.0 0.0-0.3 10^3/uL Basophils # (Auto) 0.0 0.0-0.1 10^3/uL Neutrophils % (Manual) 89 % Lymphocytes % (Manual) 10 % Monocytes % (Manual) 1 % Blood Morphology Comment NORMAL Sodium Level 141 135-145 MMOL/L Potassium Level 3.6 3.6-5.0 MMOL/L Chloride Level 109 H 98-107 MMOL/L Carbon Dioxide Level 21 21-32 MMOL/L Anion Gap 11 5-14 MMOL/L Blood Urea Nitrogen 20 H 7-18 MG/DL Creatinine 0.84 0.60-1.30 MG/DL Estimat Glomerular Filtration Rate > 60 BUN/Creatinine Ratio 24 Glucose Level 181 H 70-105 MG/DL Calcium Level 8.7 8.5-10.1 MG/DL Corrected Calcium 8.8 8.5-10.1 MG/DL Total Bilirubin 0.4 0.1-1.0 MG/DL Aspartate Amino Transf (AST/SGOT) 23 5-34 U/L Alanine Aminotransferase (ALT/SGPT) 25 0-55 U/L Alkaline Phosphatase 73 40-136 U/L Total Protein 6.4 6.4-8.2 GM/DL Albumin 3.9 3.2-4.5 GM/DL Lipase 192 H 8-78 U/L Urine Color YELLOW Urine Clarity CLEAR Urine pH 6 5-9 Urine Specific [place] 1.010 L 1.016-1.022 Urine Protein NEGATIVE NEGATIVE Urine Glucose (UA) NEGATIVE NEGATIVE Urine Ketones NEGATIVE NEGATIVE Urine Nitrite NEGATIVE NEGATIVE Urine Bilirubin NEGATIVE NEGATIVE Urine Urobilinogen NORMAL NORMAL MG/DL Urine Leukocyte Esterase 1+ H NEGATIVE Urine RBC (Auto) NEGATIVE NEGATIVE Urine RBC NONE /HPF Urine WBC 0-2 /HPF Urine Squamous Epithelial Cells 0-2 /HPF Urine Crystals NONE /LPF Urine Bacteria NEGATIVE /HPF Urine Casts NONE /LPF Urine Mucus NEGATIVE /LPF Urine Culture Indicated NO My Orders Orders - YENNY BATISTA EYEGLASS LENS GRINDER Cbc With Automated Diff (01/08/18 15:17) Comprehensive Metabolic Panel (01/08/18 15:17) Ua Culture If Indicated (01/08/18 15:17) Lipase (01/08/18 15:17) Iv Heplock-Insert (Order) (01/08/18 15:17) Hydromorphone Injection (Dilaudid Inject (01/08/18 15:30) Manual Differential (01/08/18 15:43) Hydromorphone Injection (Dilaudid Inject (01/08/18 16:30) Ketorolac Injection (Toradol Injection) (01/08/18 16:30) Iohexol Injection (Omnipaque 350 Mg/Ml 1 (01/08/18 16:30) Contrast Received (Contrast Received) (01/08/18 16:30) Sodium Chloride Flush (Catheter Flush Sy (01/08/18 16:30) Ns (Ivpb) (Sodium Chloride 0.9%) (01/08/18 16:30) Ct Sheela Chest/Noang Abd-Pelv W (01/08/18 16:20) Medications Given in ED Current Medications Medications Dose Ordered Sig/Karol Route Start Time Stop Time Status Last Admin Dose Admin Hydromorphone HCl 1 mg ONCE ONCE IV 01/08/18 15:30 01/08/18 15:31 DC 01/08/18 15:48 1 MG Hydromorphone HCl 1 mg ONCE ONCE IV 01/08/18 16:30 01/08/18 16:31 DC 01/08/18 16:29 1 MG Iohexol 100 ml ONCE ONCE IV 01/08/18 16:30 01/08/18 16:31 DC 01/08/18 16:54 100 ML Ketorolac Tromethamine 30 mg ONCE ONCE IVP 01/08/18 16:30 01/08/18 16:31 DC 01/08/18 16:29 30 MG Sodium Chloride 10 ml NEEDED PRN IV 01/08/18 16:30 01/08/18 16:54 10 ML Sodium Chloride 250 ml ONCE ONCE IV 01/08/18 16:30 01/08/18 16:31 DC 01/08/18 16:54 80 ML Vital Signs/I&O 01/08/18 15:53 Temp 97.2 Pulse 100 Resp 16 B/P (MAP) 121/71 (88) Pulse Ox 98 Capillary Refill : Less Than 3 Seconds Blood Pressure Mean: 88 Departure Communication (Admissions) 1800-her pain is now 5 out of 10 and it was 10 out of 10 upon arrival. We will give 1 additional milligram of Dilaudid for better pain control. She does have an adequate supply of hydrocodone 5/325 at home. She took one of these this morning without relief. I will prescribe oxycodone 5 mg tablets 1-2 tablets every 4 hours as needed for pain control. There is no rash to the lateral thorax to suggest shingles and there is no tenderness with light touch, only tenderness with deep firm palpation. She's had no runny nose sore throat or fevers chills body aches to suggest a viral illness that may predispose her to pleurisy. She has had a mild nonproductive cough Impression Primary Impression: Right-sided chest wall pain Disposition: 01 HOME, SELF-CARE Condition: Improved Departure-Patient Inst. Decision time for Depature: 18:07 Referrals: NO,LOCAL PHYSICIAN (PCP) Primary Care Physician ABBEY WANG (Family) Primary Care Physician Patient Instructions: Cancer Pain Syndromes (DC) Add. Discharge Instructions: 1. Call Dr. Piedra on Wednesday to make an appointment preferably sooner than January 20 if possible. Return to ER for any fevers chills or worsening symptoms. Take antibiotics as directed starting tomorrow. Take the new pain medication in place of the hydrocodone as directed starting tomorrow. Tonight, use the hydrocodone 1-2 tablets every 4 hours as needed for pain control. All discharge instructions reviewed with patient and/or family. Voiced understanding. Scripts Azithromycin (Azithromycin) 250 Mg Tablet 250 MG PO UD, #6 TAB TAKE 2 TABLETS ON DAY ONE THEN TAKE 1 TABLET DAILY FOR FOUR MORE DAYS Prov: YENNY BATISTA APRN 01/08/18 Oxycodone HCl (Oxycodone HCl) 5 Mg Tablet 5-10 MG PO Q4H PRN for PAIN-MODERATE, #30 TAB Prov: YENNY BATISTA APRN 01/08/18 Images Torso/Trunk 1 - Tenderness Copy Copies To 1: ART SMITH MD, PETER J APRN Jan 08, 2018 16:24
[2018-01-08] MEDS ORDERED: RECEIVED CONTRAST (Hold Metformin) IV SCH (16:30)
[2018-01-08] MEDS ORDERED: IOHEXOL 350 MG/ML 100 ML (OMNIPAQUE 350) VIAL IV ONE (16:30)
[2018-01-08] MEDS ORDERED: KETOROLAC 30 MG/ML VIAL IVP ONE (16:30)
[2018-01-08] MEDS ORDERED: NS 250 ML (IVPB) BAG IV ONE (16:30)
[2018-01-08] MEDS ORDERED: CATHETER FLUSH 10 ML SYR IV PRN (16:30)
--- NOTE | 2018-01-08 17:48 | Diagnostic Imaging Report ---
INDICATION: Right-sided abdominal pain. Abnormal chest radiograph. COMPARISON: CT dated 12/09/2017 TECHNIQUE: Postcontrast CTA of the chest was performed. Contrast bolus was timed for optimal opacification of the arterial structures. Multiplanar and multisequence reformats were also performed and reviewed. Contrast was administered intravenously. Postcontrast CT of the abdomen and pelvis was also performed. FINDINGS: CTA CHEST: The heart size is within normal limits. There is no large pericardial effusion. There is no evidence of acute pulmonary embolus to the first subsegmental division of the pulmonary arteries. Thoracic aorta is normal in course and caliber. Multiple enlarged mediastinal lymph nodes are identified. The largest is seen medial to the azygos vein interposed between the SVC and right mainstem bronchus/trachea. It measures 1.6 x 2.1 cm (image 46, series 4). This is not significantly changed when compared to 1.5 x 2.2 cm on exam dated 12/09/2017. No abnormal axillary adenopathy is seen. Evaluation of the lung hernandez demonstrates no focal consolidation, pleural effusion, or pneumothorax. No suspicious pulmonary nodules or masses are seen. Bony structures show no acute abnormalities. No lytic or blastic osseous lesions are identified. CT ABDOMEN: A moderate amount of air and stool is noted throughout the colon. Normal appendix cannot adequately identified, but there is no pericecal inflammation. Small bowel loops are nondistended. The kidneys, adrenal glands, spleen, pancreas, and liver have a normal CT appearance. There is no loculated fluid collection, free fluid, or free air within the abdomen. There is prominent retroperitoneal lymph node interposed between the aorta and IVC at the level of the left renal vein. It measures 1.7 x 2 cm. This is stable compared to 2.1 x 1.7 cm previously. Bony structures show no acute abnormalities. No lytic or blastic bony lesions are seen. CT PELVIS: The urinary bladder is grossly unremarkable. There is no loculated fluid collection, free fluid, or free air within the pelvis. No abnormal lymph nodes are seen. Bony structures show no acute abnormalities.. IMPRESSION: 1. Stable abnormally enlarged mediastinal and abdominal retroperitoneal adenopathy concerning for metastatic process or possible lymphoma. Correlation with known primary is recommended. 2. No acute or otherwise adverse interval change within the chest, abdomen, or pelvis. Dictated by: Dictated on workstation # [id number]
[2018-01-08] MEDS ORDERED: OXYC-529 PO (18:09)
[2018-01-08] MEDS ORDERED: AZIT250T12 PO (18:09)
[2018-01-08 18:29] VITALS: BP 124/74
== END 2018-01-08 18:29 | disposition home or self-care (01) ==
LOC: EDUNIT# 15:04 → ER 15:06
DX: R07.89 Other chest pain (principal); C50.811 Malignant neoplasm of overlapping sites of right female breast; C79.31 Secondary malignant neoplasm of brain; Z91.040 Latex allergy status; Z90.89 Acquired absence of other organs; Z90.11 Acquired absence of right breast and nipple
CPT/HCPCS: 36415; 71275; 74177; 80053; 81000; 83690; 85007; 85027; 96374; 96375; 96376

== ENCOUNTER 2018-02-24 10:24 | Outpatient (RCR) | payer MEDICARE, OTHER ==
[2018-01-20 11:03] LABS: BASOPHILS % (AUTO) 1 % (0-10); EOSINOPHILS # (AUTO) 0.1 10^3/uL (0.0-0.3); EOSINOPHILS % (AUTO) 2 % (0-10); HEMATOCRIT 36 % (35-52); HEMOGLOBIN 12.4 G/DL (11.5-16.0); LYMPHOCYTES % (AUTO) 23 % (12-44); MEAN CORPUSCULAR HEMOGLOBIN 29 PG (25-34); MEAN CORPUSCULAR HGB CONC 34 G/DL (32-36); MEAN CORPUSCULAR VOLUME 86 FL (80-99); MEAN PLATELET VOLUME 9.6 FL (7.4-10.4); MONOCYTES # (AUTO) 0.3 X 10^3 (0.0-1.0); MONOCYTES % (AUTO) 7 % (0-12); NEUTROPHILS % (AUTO) 68 % (42-75); PLATELET COUNT 170 10^3/uL (130-400); RED CELL DISTRIBUTION WIDTH 12.7 % (10.0-14.5); WHITE BLOOD COUNT 4.4 10^3/uL (4.3-11.0)
[2018-01-20 11:26] LABS: ALANINE AMINOTRANSFERASE 26 U/L (0-55); ALBUMIN 4.4 GM/DL (3.2-4.5); ALKALINE PHOSPHATASE 78 U/L (40-136); BILIRUBIN,TOTAL 0.6 MG/DL (0.1-1.0); BUN/CREATININE RATIO 19; CALCIUM 9.6 MG/DL (8.5-10.1); CARBON DIOXIDE 24 MMOL/L (21-32); CHLORIDE 109 MMOL/L (98-107); GFR ESTIMATED > 60; GLUCOSE 87 MG/DL (70-105); POTASSIUM 3.7 MMOL/L (3.6-5.0); SODIUM 143 MMOL/L (135-145); TOTAL PROTEIN 7.1 GM/DL (6.4-8.2)
[2018-02-01 10:10] LABS: BASOPHILS % (AUTO) 1 % (0-10); EOSINOPHILS # (AUTO) 0.1 10^3/uL (0.0-0.3); EOSINOPHILS % (AUTO) 3 % (0-10); HEMATOCRIT 35 % (35-52); HEMOGLOBIN 11.9 G/DL (11.5-16.0); LYMPHOCYTES # (AUTO) 0.9 X 10^3 (1.0-4.0); LYMPHOCYTES % (AUTO) 25 % (12-44); MEAN CORPUSCULAR HEMOGLOBIN 29 PG (25-34); MEAN CORPUSCULAR HGB CONC 34 G/DL (32-36); MEAN CORPUSCULAR VOLUME 86 FL (80-99); MEAN PLATELET VOLUME 9.7 FL (7.4-10.4); MONOCYTES # (AUTO) 0.3 X 10^3 (0.0-1.0); MONOCYTES % (AUTO) 8 % (0-12); NEUTROPHILS # (AUTO) 2.3 X 10^3 (1.8-7.8); NEUTROPHILS % (AUTO) 64 % (42-75); PLATELET COUNT 160 10^3/uL (130-400); WHITE BLOOD COUNT 3.6 10^3/uL (4.3-11.0)
[2018-02-01 10:27] LABS: ALANINE AMINOTRANSFERASE 26 U/L (0-55); ALBUMIN 4.3 GM/DL (3.2-4.5); ALKALINE PHOSPHATASE 77 U/L (40-136); BILIRUBIN,TOTAL 0.8 MG/DL (0.1-1.0); BUN/CREATININE RATIO 13; CALCIUM 9.4 MG/DL (8.5-10.1); CARBON DIOXIDE 26 MMOL/L (21-32); CHLORIDE 109 MMOL/L (98-107); CREATININE SERUM 0.85 MG/DL (0.60-1.30); GFR ESTIMATED > 60; GLUCOSE 74 MG/DL (70-105); POTASSIUM 3.7 MMOL/L (3.6-5.0); SODIUM 144 MMOL/L (135-145)
[2018-02-22 10:26] LABS: BASOPHILS % (AUTO) 1 % (0-10); EOSINOPHILS # (AUTO) 0.1 10^3/uL (0.0-0.3); EOSINOPHILS % (AUTO) 2 % (0-10); HEMATOCRIT 35 % (35-52); HEMOGLOBIN 11.9 G/DL (11.5-16.0); LYMPHOCYTES # (AUTO) 0.9 X 10^3 (1.0-4.0); LYMPHOCYTES % (AUTO) 22 % (12-44); MEAN CORPUSCULAR HEMOGLOBIN 29 PG (25-34); MEAN CORPUSCULAR HGB CONC 34 G/DL (32-36); MEAN CORPUSCULAR VOLUME 85 FL (80-99); MEAN PLATELET VOLUME 10.5 FL (7.4-10.4); MONOCYTES # (AUTO) 0.3 X 10^3 (0.0-1.0); MONOCYTES % (AUTO) 8 % (0-12); NEUTROPHILS # (AUTO) 2.8 X 10^3 (1.8-7.8); NEUTROPHILS % (AUTO) 67 % (42-75); PLATELET COUNT 170 10^3/uL (130-400); RED CELL DISTRIBUTION WIDTH 12.8 % (10.0-14.5); WHITE BLOOD COUNT 4.1 10^3/uL (4.3-11.0)
[2018-02-22 10:55] LABS: ALANINE AMINOTRANSFERASE 19 U/L (0-55); ALBUMIN 4.2 GM/DL (3.2-4.5); ALKALINE PHOSPHATASE 76 U/L (40-136); BILIRUBIN,TOTAL 0.5 MG/DL (0.1-1.0); BUN/CREATININE RATIO 17; CALCIUM 9.2 MG/DL (8.5-10.1); CARBON DIOXIDE 24 MMOL/L (21-32); CHLORIDE 110 MMOL/L (98-107); CREATININE SERUM 0.81 MG/DL (0.60-1.30); GFR ESTIMATED > 60; GLUCOSE 77 MG/DL (70-105); POTASSIUM 3.8 MMOL/L (3.6-5.0); SODIUM 144 MMOL/L (135-145); TOTAL PROTEIN 6.7 GM/DL (6.4-8.2)
[~2018-02-24 10:24] MED LIST changes: +AZIT250T12 PO; +OXYC-529 PO
== END 2018-03-16 | disposition home or self-care (01) ==
LOC: ONC 10:24
PROVIDERS: ATTEND Internal Medicine Hematology & Oncology
DX: C50.212 Malignant neoplasm of upper-inner quadrant of left female breast (principal); Z17.0 Estrogen receptor positive status [ER+]; F32.9 Major depressive disorder, single episode, unspecified; E11.9 Type 2 diabetes mellitus without complications; Z79.899 Other long term (current) drug therapy
CPT/HCPCS: 36415; 36591; 80053; 85025; 86300; 93005; 99213

== ENCOUNTER → 2018-05-03 | Outpatient (CLI) | payer MEDICARE, OTHER ==
[~2018-05-03] MED LIST changes: +GADOBUTROL 10 MMOL/10 ML (GADAVIST) VIAL IV ONE
--- NOTE | 2018-05-03 13:34 | Diagnostic Imaging Report ---
PROCEDURE: MR imaging of the brain with and without contrast. TECHNIQUE: Multiplanar, multisequence MR imaging of the brain was performed with and without contrast. INDICATION: Breast cancer. COMPARISON: Comparison is made to prior examination of 12/09/2017. FINDINGS: There is prominence of ventricles and sulci. There is moderate chronic microvascular ischemic disease. There is no hydrocephalus. There is no midline shift. There is no hemorrhage. There is no extra-axial fluid collection. There are postsurgical changes of right temporal lobe with some surrounding gliosis. There is no residual or recurrent enhancement in this region. There is, however, a well-circumscribed enhancing mass in the right cerebellar hemisphere measuring 7 mm. There is no other mass or abnormal enhancement. There is no hemorrhage. There is no extra-axial fluid collection. The frontal ethmoid, sphenoid and maxillary sinuses are clear. Mastoid air cells are clear. The globes and intraorbital structures are unremarkable. Arterial and dural venous sinus flow voids are preserved. IMPRESSION: 1. Stable postsurgical changes of right temporal lobe with some gliosis. There is no residual recurrent enhancement in this region. 2. 7 mm enhancing mass in the right cerebellar hemisphere suspect for intracranial metastatic disease. 3. Atrophy and moderate chronic microvascular ischemic disease. Dictated by: Dictated on workstation # [id number]
--- NOTE | 2018-05-03 14:57 | Diagnostic Imaging Report ---
PROCEDURE: MRI lumbar spine with and without contrast. TECHNIQUE: Multiplanar, multisequence MRI of the lumbar spine was performed with and without contrast. INDICATION: Low back pain with right leg tingling and numbness and a history of breast cancer. FINDINGS: The alignment of lumbar spine is normal. The vertebral body heights are well-maintained. There is no spondylolysis or spondylolisthesis. No fractures are identified. Conus medullaris seen at L1 is normal in appearance. At T12-L1, there is slight loss of disc height and signal intensity with a small central disc protrusion resulting in slight effacement of the ventral thecal sac. At L1-L2, there is slight loss of disc height and signal intensity with minimal annular bulging. There is mild facet disease. At L2-L3, there is slight loss of disc height and signal intensity with minimal annular bulging. This is also mild facet disease. At L3-L4, there is minimal annular bulging, facet disease and some thickening of ligamentum flavum. There is slight effacement of ventral thecal sac. At L4-L5, there is a prominent Schmorl's node in the inferior endplate of L4 with some surrounding edema. Broad-based annular bulging, facet disease and thickening of ligamentum flavum. There is mild central spinal stenosis with encroachment upon the lateral recess bilaterally, left greater than right. There is mild right and moderate left neural foraminal encroachment. At L5-S1, there is annular bulging slightly more prominent in the left paramedian distribution. There is also facet disease, left greater than right. There is slight encroachment upon the left lateral recess with mild left neural foraminal encroachment. There are no abnormal areas of contrast enhancement. The aorta is nonaneurysmal. Kidneys are unremarkable. IMPRESSION: Specifically, there is no evidence of osseous metastatic disease. Recommend clinical correlation and if warranted followup with bone scan. Dictated by: Dictated on workstation # [id number]
== END ==
LOC: RAD 11:33
PROVIDERS: ATTEND Internal Medicine Hematology & Oncology
DX: C50.212 Malignant neoplasm of upper-inner quadrant of left female breast (principal); C79.31 Secondary malignant neoplasm of brain; G31.9 Degenerative disease of nervous system, unspecified; I67.82 Cerebral ischemia; M54.5 Low back pain; Z98.890 Other specified postprocedural states
CPT/HCPCS: 70553; 72158

== ENCOUNTER → 2018-05-12 | Outpatient (CLI) | payer MEDICARE, OTHER ==
[~2018-05-12] MED LIST changes: +BARIUM SUSPENSION 2.1% (VANILLA SILQ) 450 ML PO ONE; -GADOBUTROL 10 MMOL/10 ML (GADAVIST) VIAL IV ONE; +HOLD METFORMIN - RECEIVED CONTRAST 20 ML VIAL IV SCH; +IOHEXOL 350 MG/ML 100 ML (OMNIPAQUE 350) VIAL IV ONE
--- NOTE | 2018-05-12 10:23 | Diagnostic Imaging Report ---
PROCEDURE: CT chest and abdomen with contrast. TECHNIQUE: Multiple contiguous axial images were obtained through the chest and abdomen after the administration of intravenous contrast. Auto Exposure Controls were utilized during the CT exam to meet ALARA standards for radiation dose reduction. INDICATION: Breast cancer with brain metastases. Correlation is made with prior CT from 01/08/2018. CT CHEST: A right chest wall port has tip within the SVC. Postsurgical changes in the left axilla are noted. No definite axillary lymphadenopathy is identified. No internal mammary lymphadenopathy is detected. Previously noted enlarged lymph node in the right paratracheal location measures 1.9 x 1.6 cm compared with 2.2 x 1.6 cm on prior. Additional lymph nodes in the mediastinum also appear to be slightly smaller. No hilar lymphadenopathy is seen. No pericardial or pleural fluid is identified. No pulmonary infiltrates, nodules or masses are seen. IMPRESSION: Mild decrease in size of mediastinal lymph nodes when compared exam from 01/08/2018. No pulmonary metastatic disease or an other new abnormality is seen. CT ABDOMEN: No discrete liver mass is identified. Gallbladder is unremarkable. No biliary duct dilatation is seen. The pancreas and spleen are unremarkable. No adrenal mass is identified. Kidneys are unremarkable. Aorta is non-aneurysmal. Large lymph node in aortocaval region is again noted appears to be similar in size approximately 1.9 x 2.0 cm compared 1.7 x 2.0 cm. Visualized bowel loops are normal caliber. There is no ascites. IMPRESSION: Stable central retroperitoneal lymphadenopathy when compared with prior examination from 01/08/2018. No new abnormality is detected. Dictated by: Dictated on workstation # [id number]
== END ==
LOC: RAD 09:10
PROVIDERS: ATTEND Internal Medicine Hematology & Oncology
DX: C50.212 Malignant neoplasm of upper-inner quadrant of left female breast (principal); C79.31 Secondary malignant neoplasm of brain; R59.0 Localized enlarged lymph nodes; Z95.828 Presence of other vascular implants and grafts
CPT/HCPCS: 71260; 74160

== ENCOUNTER 2018-05-31 12:37 | Outpatient (RCR) | payer MEDICARE, OTHER ==
[2018-03-22 09:13] LABS: BASOPHILS % (AUTO) 1 % (0-10); EOSINOPHILS # (AUTO) 0.1 10^3/uL (0.0-0.3); EOSINOPHILS % (AUTO) 2 % (0-10); HEMATOCRIT 34 % (35-52); HEMOGLOBIN 11.7 G/DL (11.5-16.0); LYMPHOCYTES # (AUTO) 0.8 X 10^3 (1.0-4.0); LYMPHOCYTES % (AUTO) 14 % (12-44); MEAN CORPUSCULAR HEMOGLOBIN 29 PG (25-34); MEAN CORPUSCULAR HGB CONC 34 G/DL (32-36); MEAN CORPUSCULAR VOLUME 85 FL (80-99); MEAN PLATELET VOLUME 9.3 FL (7.4-10.4); MONOCYTES # (AUTO) 0.5 X 10^3 (0.0-1.0); MONOCYTES % (AUTO) 9 % (0-12); NEUTROPHILS # (AUTO) 4.3 X 10^3 (1.8-7.8); NEUTROPHILS % (AUTO) 74 % (42-75); PLATELET COUNT 167 10^3/uL (130-400); RED CELL DISTRIBUTION WIDTH 13.4 % (10.0-14.5); WHITE BLOOD COUNT 5.8 10^3/uL (4.3-11.0)
[2018-03-22 09:38] LABS: ALANINE AMINOTRANSFERASE 20 U/L (0-55); ALBUMIN 4.1 GM/DL (3.2-4.5); ALKALINE PHOSPHATASE 81 U/L (40-136); BILIRUBIN,TOTAL 0.8 MG/DL (0.1-1.0); BUN/CREATININE RATIO 18; CALCIUM 9.2 MG/DL (8.5-10.1); CARBON DIOXIDE 24 MMOL/L (21-32); CHLORIDE 108 MMOL/L (98-107); CREATININE SERUM 0.77 MG/DL (0.60-1.30); GFR ESTIMATED > 60; GLUCOSE 82 MG/DL (70-105); SODIUM 143 MMOL/L (135-145); TOTAL PROTEIN 6.8 GM/DL (6.4-8.2)
[2018-05-03 11:26] LABS: BASOPHILS % (AUTO) 1 % (0-10); EOSINOPHILS # (AUTO) 0.1 10^3/uL (0.0-0.3); EOSINOPHILS % (AUTO) 2 % (0-10); HEMATOCRIT 36 % (35-52); HEMOGLOBIN 12.2 G/DL (11.5-16.0); LYMPHOCYTES # (AUTO) 0.9 X 10^3 (1.0-4.0); LYMPHOCYTES % (AUTO) 20 % (12-44); MEAN CORPUSCULAR HEMOGLOBIN 29 PG (25-34); MEAN CORPUSCULAR HGB CONC 34 G/DL (32-36); MEAN CORPUSCULAR VOLUME 87 FL (80-99); MEAN PLATELET VOLUME 9.3 FL (7.4-10.4); MONOCYTES # (AUTO) 0.5 X 10^3 (0.0-1.0); MONOCYTES % (AUTO) 10 % (0-12); NEUTROPHILS # (AUTO) 3.2 X 10^3 (1.8-7.8); NEUTROPHILS % (AUTO) 68 % (42-75); PLATELET COUNT 181 10^3/uL (130-400); RED CELL DISTRIBUTION WIDTH 13.2 % (10.0-14.5); WHITE BLOOD COUNT 4.7 10^3/uL (4.3-11.0)
[2018-05-03 11:46] LABS: ALANINE AMINOTRANSFERASE 26 U/L (0-55); ALBUMIN 4.4 GM/DL (3.2-4.5); ALKALINE PHOSPHATASE 87 U/L (40-136); BILIRUBIN,TOTAL 0.4 MG/DL (0.1-1.0); BUN/CREATININE RATIO 19; CALCIUM 9.6 MG/DL (8.5-10.1); CARBON DIOXIDE 24 MMOL/L (21-32); CHLORIDE 107 MMOL/L (98-107); CREATININE SERUM 0.79 MG/DL (0.60-1.30); GFR ESTIMATED > 60; GLUCOSE 79 MG/DL (70-105); POTASSIUM 4.1 MMOL/L (3.6-5.0); SODIUM 139 MMOL/L (135-145); TOTAL PROTEIN 7.2 GM/DL (6.4-8.2)
[~2018-05-31 12:37] MED LIST changes: -BARIUM SUSPENSION 2.1% (VANILLA SILQ) 450 ML PO ONE; -HOLD METFORMIN - RECEIVED CONTRAST 20 ML VIAL IV SCH; -IOHEXOL 350 MG/ML 100 ML (OMNIPAQUE 350) VIAL IV ONE
[2018-05-31 13:56] LABS: BASOPHILS % (AUTO) 1 % (0-10); EOSINOPHILS # (AUTO) 0.1 10^3/uL (0.0-0.3); EOSINOPHILS % (AUTO) 2 % (0-10); HEMATOCRIT 38 % (35-52); LYMPHOCYTES # (AUTO) 1.1 X 10^3 (1.0-4.0); LYMPHOCYTES % (AUTO) 18 % (12-44); MEAN CORPUSCULAR HEMOGLOBIN 29 PG (25-34); MEAN CORPUSCULAR HGB CONC 34 G/DL (32-36); MEAN CORPUSCULAR VOLUME 86 FL (80-99); MEAN PLATELET VOLUME 9.6 FL (7.4-10.4); MONOCYTES # (AUTO) 0.6 X 10^3 (0.0-1.0); MONOCYTES % (AUTO) 10 % (0-12); NEUTROPHILS # (AUTO) 4.4 X 10^3 (1.8-7.8); NEUTROPHILS % (AUTO) 70 % (42-75); PLATELET COUNT 176 10^3/uL (130-400); WHITE BLOOD COUNT 6.3 10^3/uL (4.3-11.0)
[2018-05-31 14:20] LABS: ALANINE AMINOTRANSFERASE 30 U/L (0-55); ALKALINE PHOSPHATASE 78 U/L (40-136); BILIRUBIN,TOTAL 0.4 MG/DL (0.1-1.0); BUN/CREATININE RATIO 21; CALCIUM 9.2 MG/DL (8.5-10.1); CARBON DIOXIDE 28 MMOL/L (21-32); CHLORIDE 105 MMOL/L (98-107); GFR ESTIMATED > 60; GLUCOSE 104 MG/DL (70-105); POTASSIUM 3.9 MMOL/L (3.6-5.0); SODIUM 141 MMOL/L (135-145); TOTAL PROTEIN 6.6 GM/DL (6.4-8.2)
== END 2018-06-20 | disposition home or self-care (01) ==
LOC: ONC 12:37
PROVIDERS: ATTEND Internal Medicine Hematology & Oncology
DX: C50.212 Malignant neoplasm of upper-inner quadrant of left female breast (principal); Z17.0 Estrogen receptor positive status [ER+]; F32.9 Major depressive disorder, single episode, unspecified; E11.9 Type 2 diabetes mellitus without complications; Z79.899 Other long term (current) drug therapy; C79.31 Secondary malignant neoplasm of brain; G31.9 Degenerative disease of nervous system, unspecified; I67.82 Cerebral ischemia; M54.5 Low back pain; Z98.890 Other specified postprocedural states
CPT/HCPCS: 36591; 70553; 72158; 80053; 85025; 86300; 99213

== ENCOUNTER → 2018-07-19 | Outpatient (CLI) | payer MEDICARE ==
[~2018-07-19] MED LIST changes: +GADOBUTROL 10 MMOL/10 ML (GADAVIST) VIAL IV ONE
--- NOTE | 2018-07-19 11:37 | Diagnostic Imaging Report ---
PROCEDURE: MRI left joint lower extremity with and without contrast. TECHNIQUE: Multiplanar, multisequence pre and post contrast-enhanced MRI of the left lower extremity was accomplished. INDICATION: Low back pain, left hip pain There are no prior MRI pelvis exams available for comparison. On the T1 coronal series there are fairly well-circumscribed areas of altered signal in each femoral head. This includes a 8.4 x 32.7 MM area of abnormal signal in the left femoral head and a 18.4 x 12.6 MM signal abnormality in the right femoral head. These findings are felt to be related to avascular necrosis. There is no other abnormal signal arising from the osseous structures to suggest bone edema or a fracture. There is moderate degenerative disease involving both hip joints. The labrum of each hip joint is thinned but there is no clear evidence for a labral tear. There is no sign of a joint effusion either. There is only mild degenerative disease of the sacroiliac joints. There is no pelvic mass or free fluid collection evident. The urinary bladder is grossly unremarkable. The uterus is surgically absent. IMPRESSION: 1. There is abnormal signal involving both femoral heads. This appearance does snuggest avascular necrosis. There is no acute bony abnormality noted. 2. There is at least moderate degenerative disease of both hip joints. There is no clear evidence for a labral tear and there is no sign of a joint effusion. 3. There is no pelvic mass or free fluid collection evident. Dictated by: Dictated on workstation # [id number]
--- NOTE | 2018-07-19 11:50 | Diagnostic Imaging Report ---
PROCEDURE: MRI lumbar spine with and without contrast. TECHNIQUE: Multiplanar, multisequence MRI of the lumbar spine was performed with and without contrast. INDICATION: Low back pain. Left hip pain. History of breast cancer. COMPARISON: MRI lumbar spine without and with IV contrast from 05/03/2018. FINDINGS: There are five lumbar-type vertebral bodies for the purposes of this report. Normal alignment. Vertebral body heights are preserved. Scattered Schmorl's nodes, the largest is in the inferior endplate of L4 with Modic type II degenerative endplate changes. Bone marrow signal is otherwise unremarkable. No abnormal signal or enhancement in the conus which terminates at L2. Normal morphology of the cauda equina. T12-L1: Small central disc protrusion. No substantial spinal canal, lateral recess, or neuroforaminal narrowing. L1-L2: No spinal canal, neuroforaminal, or lateral recess narrowing. L2-L3: No spinal canal, lateral recess, or neuroforaminal narrowing. L3-L4: No spinal canal or lateral recess narrowing. Disc space height loss and facet arthropathy contribute to mild bilateral neuroforaminal narrowing. L4-L5: Annular disc bulge, ligamentous hypertrophy, and facet arthropathy result in moderate left and mild right lateral recess narrowing. Mild spinal canal narrowing. [id number] bilateral neuroforaminal narrowing. L5-S1: No spinal canal or lateral recess narrowing. Facet arthropathy contributes to mild bilateral neuroforaminal narrowing. The right S1 nerve root is partially visualized and appears enlarged compared to the contralateral side with iso T1 and T2 signal with homogeneous enhancement, similar to the prior exam. IMPRESSION: 1. Overall stable spondylotic changes. This results in [id number] scattered neuroforaminal narrowing, detailed above. There is also moderate left lateral recess narrowing at L4-L5. No high-grade spinal canal narrowing. 2. Stable enlargement of the right S1 nerve root is partially visualized. This finding is nonspecific and may be due to a neurofibroma, less likely schwannoma. Although metastasis is not excluded, given the absence of additional findings and stability, this is considered much less likely. Dictated by: Dictated on workstation # [id number]
== END ==
LOC: RAD 09:21
PROVIDERS: ATTEND Internal Medicine Hematology & Oncology
DX: M48.07 Spinal stenosis, lumbosacral region (principal); M46.87 Other specified inflammatory spondylopathies, lumbosacral region; M47.816 Spondylosis without myelopathy or radiculopathy, lumbar region; M51.26 Other intervertebral disc displacement, lumbar region; M51.36 Other intervertebral disc degeneration, lumbar region; M51.46 Schmorl's nodes, lumbar region; G58.8 Other specified mononeuropathies; M16.0 Bilateral primary osteoarthritis of hip; C50.919 Malignant neoplasm of unspecified site of unspecified female breast; Z90.710 Acquired absence of both cervix and uterus
CPT/HCPCS: 72158; 73723

== ENCOUNTER → 2018-07-22 | Outpatient (CLI) | payer MEDICARE ==
[~2018-07-22] MED LIST changes: -GADOBUTROL 10 MMOL/10 ML (GADAVIST) VIAL IV ONE; +GADOBUTROL 7.5 MMOL/7.5 ML (GADAVIST) VIAL IV ONE
--- NOTE | 2018-07-22 20:57 | Diagnostic Imaging Report ---
PROCEDURE: MR imaging of the brain with and without contrast. TECHNIQUE: Multiplanar, multisequence MR imaging of the brain was performed with and without contrast. INDICATION: Headaches, history of breast cancer. FINDINGS: The previous MRI brain exam of 05/03/2018 noted postsurgical changes involving the right temporal lobe. There is no abnormal enhancement in this area to suggest neoplasm, however. On this study, the postsurgical changes are again evident. There is a small 4-5 mm area of enhancement along the anterior aspect of the postsurgical changes. This finding does seem more conspicuous on the axial series but virtually unchanged on the coronal series. This may be secondary to a small area of gliosis as opposed to residual/recurrent neoplasm. Even so, the possibility that this is neoplastic in nature should still be considered. The previous study also identified a 7 mm area of enhancement in the periphery of the right cerebellar hemisphere. That enhancing lesion has diminished in size and now measures 4.1 mm; however, in the interval since the previous study, enhancing lesions have developed on each side of the falx anteriorly. These are best visualized on the coronal series. The lesion on the right measures 8.9 x 12.9 mm while the left-sided area of enhancement is estimated to be 7.6 x 9.5 mm. There is no other abnormal enhancement to suggest neoplastic disease. There is no abnormal signal arising from the brain on the diffusion series to indicate an area of acute ischemia. There is some increased signal involving the gyri of both parietal lobes on the diffusion series, but this is unlikely to be related to infarction. The ventricles are stable in size. The sella is not enlarged and the expected carotid flow voids are evident bilaterally. The orbits are symmetrical and within normal limits. The retention cyst in the right maxillary antrum seen previously is again evident and no different. The seventh and eighth nerve complexes are unremarkable. IMPRESSION: 1. There is no evidence for an acute intracranial abnormality. 2. The postsurgical changes involving the right temporal lobe seen previously are again evident. The small area of enhancement along the anterior margin of the surgical bed may be secondary to gliosis or to residual/recurrent neoplasm. 3. The small focus of enhancement in the right cerebellar hemisphere noted previously has decreased in size, but two new areas of abnormal enhancement have developed on each side of the falx in the frontal lobe. These should be considered neoplastic until proven otherwise. 4. The overall appearance of the brain has not changed significantly otherwise. Dictated by: Dictated on workstation # [id number]
== END ==
LOC: RAD 16:59
PROVIDERS: ATTEND Internal Medicine Hematology & Oncology
DX: C79.31 Secondary malignant neoplasm of brain (principal); C80.1 Malignant (primary) neoplasm, unspecified; W19.XXXA Unspecified fall, initial encounter; Z98.890 Other specified postprocedural states
CPT/HCPCS: 70553

== ENCOUNTER → 2018-09-12 | Outpatient (CLI) | payer MEDICARE ==
[~2018-09-12] MED LIST changes: +GADOBUTROL 10 MMOL/10 ML (GADAVIST) VIAL IV ONE; -GADOBUTROL 7.5 MMOL/7.5 ML (GADAVIST) VIAL IV ONE
--- NOTE | 2018-09-12 11:40 | Diagnostic Imaging Report ---
PROCEDURE: MR imaging of the brain with and without contrast. TECHNIQUE: Multiplanar, multisequence MR imaging of the brain was performed with and without contrast. INDICATION: Left-sided facial droopiness. Patient has history of breast cancer and brain tumor with surgery in May 2017. COMPARISON: Correlation is made with MRI of the brain from 07/22/2018. FINDINGS: Postsurgical changes in the right temporal parietal lobe are again noted. No diffusion restriction is identified to suggest acute ischemia. Normal expected flow-voids within the carotid siphons are seen. Moderate periventricular white matter changes are noted. Overall ventricular size is stable. However, worsening appearance of the brain is noted since the examination from 07/22/2018. There are new areas of abnormal enhancement present consistent with worsening intracranial metastatic disease. At the surgical bed in the right temporal lobe there is now a lobulated region of significant enhancement measuring 1.7 x 1.0 cm compared with 5 mm on prior exam. Previously noted tiny area of enhancement in the right cerebellar hemisphere is stable. There is a tiny area of enhancement in the interpeduncular region of the midbrain measuring 4 mm. This is barely visible on the prior exam. There is a new area of enhancement in the medial aspect of the left temporal lobe measuring 5 mm. Abnormal region of enhancement at the left occipital lobe adjacent to the splenium of corpus callosum is noted measuring 11 mm in diameter. There are some more linear areas of enhancement in the bilateral occipital lobes as well. 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 An area of rounded enhancement in the superior right posterior parietal lobe is now seen along the upper margin of the surgical bed measuring 6 mm. Just cephalad to this is an area of slightly irregular enhancement measuring 10 mm x 7 mm. Regions of enhancement along the anterior falx in the bilateral frontal lobes appears less prominent on today's study. There are enhancing lesions in the bilateral cerebellopontine angles. Lesion on the right measures 10 mm x 6 mm. Lesion on the left is approximately 14 mm x 7 mm. These may have been present on prior exam but appear more prominent. IMPRESSION: Development of numerous new areas of intracranial enhancement consistent with worsening intracranial metastatic disease. There are some linear regions of enhancement present as well bilaterally which could represent leptomeningeal disease. No acute intracranial hemorrhage or evidence of acute ischemia are identified. There are some enhancing bilateral CP angle lesions. While these may represent metastatic lesions other etiologies such as acoustic neuromas or meningiomas would be additional considerations. Dictated by: Dictated on workstation # [id number]
== END ==
LOC: RAD 10:11
PROVIDERS: ATTEND Internal Medicine Hematology & Oncology
DX: G93.9 Disorder of brain, unspecified (principal); R26.81 Unsteadiness on feet; W19.XXXA Unspecified fall, initial encounter; Z85.3 Personal history of malignant neoplasm of breast; Z85.841 Personal history of malignant neoplasm of brain
CPT/HCPCS: 70553